=== PATIENT | female | born 1955 | race American Indian/Alaskan Native ===

== ENCOUNTER 2021-02-09 18:44 | Inpatient (IN) | payer MEDICAID ==
[2021-02-09] MEDS ORDERED: Docusate Sodium/Sennosides Tab PO PRN (19:38)
[2021-02-09] MEDS ORDERED: Acetaminophen 325 MG Tab PO PRN (19:38)
[2021-02-09] MEDS ORDERED: oxyCODONE 5 MG Tab PO PRN (19:38)
[2021-02-09 19:40] LABS: CORONAVIRUS COVID-19 NAA POSITIVE (NEGATIVE); INFLUENZA A NAA NEGATIVE (NEGATIVE); INFLUENZA B NAA NEGATIVE (NEGATIVE)
--- NOTE | 2021-02-09 19:54 | PCM.HP.2 ---
H&P History of Present Illness - General Date of Service: 02/09/21 Admit Problem/Dx: Admission Diagnosis/Problem Admission Diagnosis/Problem Hypoxemia - History of Present Illness Initial Comments - Free Text/Narative: Neva Moura is a 66 y/o female with a h/o T2DM and CKD stage III who was transferred to our facility from [place], [place] for concerns of a possible pulmonary embolus. She was diagnosed with COVID 19 infection around jan 22. She stayed home mostly in bed for about a week. She was a finally able to get stronger and get out of the house more last week. She has since then been eating more and doing more activities. Two days ago as she was doing her regular activities of daily living she noticed that she was easily running out of breath. She asked a friend to bring her to the nearest emergency dept in [place], [place]. She was evaluated and found to be hypoxemic in the low 80's on room air. She was given 2L oxygen by MA. Her blood tests revealed a significantly elevated D dimer. The ED provider was unable to perform a CTA chest because her serum cr was elevated and her GFR was in the 30's. She was therefore sent to our facility for further evaluation and management. She continues to have a dry cough but denies having any fevers, chills, diarrhea or loss of appetite. - Related Data Allergies/Adverse Reactions: Allergies Allergy/AdvReac Type Severity Reaction Status Date / Time oxycodone Allergy Chest Verified 02/09/21 19:49 Tightness tramadol Allergy Other Uncoded 02/09/21 19:49 Home Medications: Home Meds Aspirin [Halfprin] 81 mg PO DAILY 02/09/21 [History] Gabapentin [Neurontin] 600 mg PO BEDTIME 02/09/21 [History] Insulin Glarg,Human.Rec.Analog [Lantus] 48 unit SUBCUT BEDTIME 02/09/21 [History] Losartan [Cozaar] 50 mg PO BEDTIME 02/09/21 [History] RX: Gabapentin [Neurontin] 300 mg PO DAILY 02/09/21 [History] H&P Review of Systems - Review of Systems: Review Of Systems: Comprehensive ROS is negative, except as noted in HPI. Exam - Exam Exam: See Below - Vital Signs Vital Signs: Last Vital Signs Temp 97.7 F 02/09/21 18:45 Pulse 107 H 02/09/21 18:45 Resp 22 H 02/09/21 18:45 BP 166/91 H 02/09/21 18:45 Pulse Ox 94 L 02/09/21 18:45 - Exam Physical Exam Comments:: General: Well developed middle aged female. In no acute distress CVS: S1S2 appreciated. RRR lungs: diminished in the bases bilaterally pa: soft, non tender. bowel sounds present ext: no clubbing, cyanosis or edema neuro: moves all extremities. sensation is intact psych: stable mood and affect. - Patient Data Lab Results Last 24 hrs: Laboratory Results - last 24 hr 02/09/21 Range/Units 18:50 Influenza Type A RNA NEGATIVE (NEGATIVE) Influenza Type B RNA NEGATIVE (NEGATIVE) Result Diagrams: 02/10/21 07:15 02/10/21 07:15 Sepsis Event Note - Focused Exam Vital Signs: Vital Signs Temp Pulse Resp BP Pulse Ox 02/09/21 18:45 97.7 F 107 H 22 H 166/91 H 94 L - Problem List (1) Renal failure SNOMED Code(s): 08683878 ICD Code: N19 - UNSPECIFIED KIDNEY FAILURE Status: Acute Current Visit: Yes (2) T2DM (type 2 diabetes mellitus) SNOMED Code(s): 44741872 ICD Code: E11.9 - TYPE 2 DIABETES MELLITUS WITHOUT COMPLICATIONS Status: Acute Current Visit: Yes (3) CAD (coronary artery disease) SNOMED Code(s): 25335351 ICD Code: I25.10 - ATHSCL HEART DISEASE OF [place] CORONARY ARTERY W/O ANG PCTRS Status: Acute Current Visit: Yes (4) CKD stage 3 due to type 2 diabetes mellitus SNOMED Code(s): 940187471749 ICD Code: E11.22 - TYPE 2 DIABETES MELLITUS W DIABETIC CHRONIC KIDNEY DISEASE; N18.30 - CHRONIC KIDNEY DISEASE, STAGE 3 UNSPECIFIED Status: Acute Current Visit: Yes (5) Pulmonary embolism SNOMED Code(s): 89673691 ICD Code: I26.99 - OTHER PULMONARY EMBOLISM WITHOUT ACUTE COR PULMONALE Status: Acute Current Visit: Yes (6) COVID-19 virus infection SNOMED Code(s): 188521646 ICD Code: U07.1 - COVID-19 Status: Acute Current Visit: Yes Problem List Initiated/Reviewed/Updated: Yes Orders Last 24hrs: Active Orders 24 hr Category Date Time Status Patient Status [ADT] Routine ADT 02/09/21 19:38 Active Blood Glucose Check, Bedside [RC] QIDACANDBED Care 02/09/21 19:38 Active Overnight Pulse Oximetry [RC] Click to Edit Care 02/09/21 19:48 Active Oxygen Therapy [RC] PRN Care 02/09/21 19:38 Active Pulse Oximetry [RC] CONTINUOUS Care 02/09/21 19:42 Active RT Aerosol Therapy [RC] ASDIRECTED Care 02/09/21 19:44 Active RT Incentive Spirometry [RC] Q1HWA Care 02/09/21 19:48 Active Up ad Silke [RC] ASDIRECTED Care 02/09/21 19:38 Active VTE/DVT Education [RC] PER UNIT ROUTINE Care 02/09/21 19:38 Active Vital Signs [RC] Q4H Care 02/09/21 19:38 Active Consistent Carbohydrate Diet [DIET] Diet 02/09/21 Lunch Active CTA Chest W WO Contrast [Ang Chest] [CT] Stat Exams 02/09/21 19:49 Ordered BASIC METABOLIC PANEL,BMP [CHEM] AM Lab 02/10/21 05:11 Ordered BASIC METABOLIC PANEL,BMP [CHEM] Stat Lab 02/09/21 19:49 Ordered CBC WITH AUTO DIFF [HEME] AM Lab 02/10/21 05:11 Ordered COVID-19/FLU A+B [MOLEC] Urgent Lab 02/09/21 18:50 Results Acetaminophen [TylenoL] Med 02/09/21 19:38 Ordered 650 mg PO Q4H PRN Albuterol/Ipratropium [DuoNeb 3.0-0.5 MG/3 ML] Med 02/10/21 00:00 Ordered 3 ml NEB Q6HRRT Docusate Sodium/Sennosides [Senokot-S] Med 02/09/21 19:38 Ordered 1 each PO BID PRN Heparin Sodium Med 02/09/21 19:45 Ordered 5,000 units SUBCUT Q12H Sodium Chloride 0.9% [Normal Saline] 500 ml Med 02/09/21 19:45 Ordered IV ASDIRECTED oxyCODONE Med 02/09/21 19:38 Ordered 5 mg PO Q4H PRN Pulse Oximetry Continuous Monitoring [OM.PC] Routine Oth 02/09/21 19:48 Ordered Resuscitation Status Routine Resus Stat 02/09/21 19:38 Ordered Medication Orders Acetaminophen (Acetaminophen 325 Mg Tab) 650 mg PO Q4H PRN PRN Reason: Pain (Mild 1-3)/fever Albuterol/Ipratropium (Albuterol/Ipratropium 3.0-0.5 Mg/3 Ml Neb Soln) 3 ml NEB Q6HRRT BARBER Heparin Sodium (Porcine) (Heparin Sodium 5,000 Units/Ml Vial) 5,000 units SUBCUT Q12H BARBER Sodium Chloride (Normal Saline) 500 mls @ 75 mls/hr IV ASDIRECTED BARBER Oxycodone HCl (Oxycodone 5 Mg Tab) 5 mg PO Q4H PRN PRN Reason: Pain (moderate 4-6) Senna/Docusate Sodium (Docusate Sodium/Sennosides Tab) 1 each PO BID PRN PRN Reason: Constipation Assessment/Plan Comment:: Pulmonary embolism secondary to recent COVID 19 infection Admit to medical floor and start pt on a DOAC continuous pulse oximetry COVID 19 infection Treat with Dexamethasone. Will not give Remdesivir as pt is stable and is several days out from her initial infection. Anticoagulation with Eliquis. Acute hypoxemic respiratory failure due to # 2 above nebs, oxygen supplementation, incentive spirometry T2DM resume insulin as per home regimen CKD stage 3 Gentle hydration following the CT contrast Avoid nephrotoxins CAD Seen on CT scan chest. Pt will need out pt follow up with her PCP regarding a cardiology referral. Full code status Pt may be able to go home in the next 1-2 days. - Mortality Measure Prognosis:: Good
[2021-02-09] MEDS: Sodium Chloride 0.9% 500 ML IV SCH (20:11)
[2021-02-09] MEDS ORDERED: Sodium Chloride 0.9% 500 ML IV SCH (20:30)
[2021-02-09 20:52] LABS: CARBON DIOXIDE,CO2 24.9 mmol/L (21.0-32.0); POTASSIUM,K 3.9 mmol/L (3.5-5.1)
[2021-02-09] MEDS ORDERED: Insulin Glargine,Human Rec. Analog 100 Units/ML 3 ML Pen SUBCUT SCH (21:00)
[2021-02-09] MEDS ORDERED: Glucagon,Human Recombinant 1 MG Vial IM PRN (23:39)
[2021-02-09] MEDS ORDERED: 50% Dextrose in Water 50 ML Syringe IVPUSH PRN (23:39)
[2021-02-10] MEDS ORDERED: Heparin Sodium 5,000 Units/ML Vial SUBCUT SCH
[2021-02-10] MEDS: Albuterol/Ipratropium 3.0-0.5 MG/3 ML Neb Soln NEB SCH ×5 (00:02→23:14)
[2021-02-10] MEDS ORDERED: Enoxaparin 40 MG/0.4 ML Syringe SUBCUT SCH (00:15)
[2021-02-10] MEDS: Aspirin 81 MG Tab.EC PO SCH ×2 (00:29→07:59)
[2021-02-10] MEDS: Gabapentin 300 MG Cap PO SCH ×3 (00:29→20:00)
--- NOTE | 2021-02-10 01:40 | CT ---
INDICATION: Chest pain with shortness of breath and elevated D-dimer TECHNIQUE: CT chest pulmonary PE protocol acquired with 75 cc Isovue 370 IV contrast. COMPARISON: None FINDINGS: Cardiovascular structures: Pulmonary emboli in subsegmental branches of the right lower lobe. No evidence for right heart strain. Coronary artery calcifications. No sign of aneurysm in the thoracic aorta. Mediastinum and diamond: No mass or adenopathy. Lungs: Diffuse ground-glass opacities throughout the lungs. Pleura and pericardium: No effusions. Chest wall and axilla: No mass or adenopathy. Upper abdomen: Unremarkable. Bones: No significant findings. IMPRESSION: Pulmonary emboli in subsegmental branches of the right lower lobe. No evidence for right heart strain. Diffuse ground-glass opacities throughout the lungs concerning for infection, including COVID-19. Coronary artery disease. Findings discussed with Dr. Cota at 1:31am on 02/10/2021. Please note that all CT scans at this facility use dose modulation, iterative reconstruction, and/or weight-based dosing when appropriate to reduce radiation dose to as low as reasonably achievable. Dictated by Aletha Hampton MD @ 02/10/2021 12:29:22 AM (Electronically Signed)
[2021-02-10] MEDS: Apixaban 5 MG Tab PO SCH ×3 (02:06→20:00)
[2021-02-10] MEDS: Sodium Chloride 0.9% 500 ML IV SCH (04:50)
[2021-02-10] MEDS ORDERED: 50% Dextrose in Water 50 ML Syringe IVPUSH PRN ×2 (07:48→12:25)
[2021-02-10] MEDS ORDERED: Glucagon,Human Recombinant 1 MG Vial IM PRN ×2 (07:48→12:25)
[2021-02-10] MEDS: Insulin Aspart 100 Units/ML 3 ML Pen SUBCUT SCH ×2 (07:59→12:25)
[2021-02-10 08:38] LABS: CARBON DIOXIDE,CO2 15.7 mmol/L (21.0-32.0); POTASSIUM,K 4.6 mmol/L (3.5-5.1)
--- NOTE | 2021-02-10 10:45 | PCM.PN ---
- General Info Date of Service: 02/10/21 Admission Dx/Problem (Free Text): Pt feels relatively OK today. She is able to do about 1300cc on the incentive spirometer - Patient Data Vitals - Most Recent: Last Vital Signs Temp 97.5 F 02/10/21 07:47 Pulse 115 H 02/10/21 07:47 Resp 20 02/10/21 07:47 BP 156/79 H 02/10/21 07:47 Pulse Ox 93 L 02/10/21 07:47 Weight - Most Recent: 169 lb 12.8 oz I&O - Last 24 Hours: Intake & Output 02/09/21 02/10/21 02/10/21 22:59 06:59 14:59 Intake Total 1600 Output Total 1200 Balance 400 Lab Results Last 24 Hours: Laboratory Results - last 24 hr 02/09/21 02/09/21 02/09/21 Range/Units 18:50 20:09 20:20 WBC (4.0-11.0) K/uL RBC (4.30-5.90) M/uL Hgb (12.0-16.0) g/dL Hct (36.0-46.0) % MCV (80.0-98.0) fL MCH (27.0-32.0) pg MCHC (31.0-37.0) g/dL RDW Std Deviation (28.0-62.0) fl RDW Coeff of Lv (11.0-15.0) % Plt Count (150-400) K/uL MPV (7.40-12.00) fL Neut % (Auto) (48.0-80.0) % Lymph % (Auto) (16.0-40.0) % [place] % (Auto) (0.0-15.0) % Eos % (Auto) (0.0-7.0) % Baso % (Auto) (0.0-1.5) % Neut # (Auto) (1.4-5.7) K/uL Lymph # (Auto) (0.6-2.4) K/uL [place] # (Auto) (0.0-0.8) K/uL Eos # (Auto) (0.0-0.7) K/uL Baso # (Auto) (0.0-0.1) K/uL Nucleated RBC % /100WBC Nucleated RBCs # K/uL Sodium 137 (136-145) mmol/L Potassium 3.9 (3.5-5.1) mmol/L Chloride 103 (98-107) mmol/L Carbon Dioxide 24.9 (21.0-32.0) mmol/L BUN 16 (7.0-18.0) mg/dL Creatinine 1.5 H (0.6-1.0) mg/dL Est Cr Clr Drug Dosing 36.85 mL/min Estimated GFR (MDRD) 35.0 ml/min Glucose 317 H (74-106) mg/dL POC Glucose 274 H (70-99) mg/dL Calcium 7.5 L (8.5-10.1) mg/dL Influenza Type A RNA NEGATIVE (NEGATIVE) Influenza Type B RNA NEGATIVE (NEGATIVE) SARS-CoV-2 RNA (ROGER) POSITIVE H (NEGATIVE) 02/09/21 02/10/21 02/10/21 Range/Units 20:20 06:40 07:15 WBC 10.20 9.65 (4.0-11.0) K/uL RBC 3.29 L 3.54 L (4.30-5.90) M/uL Hgb 10.3 L 10.9 L (12.0-16.0) g/dL Hct 28.9 L 31.7 L (36.0-46.0) % MCV 87.8 89.5 (80.0-98.0) fL MCH 31.3 30.8 (27.0-32.0) pg MCHC 35.6 34.4 (31.0-37.0) g/dL RDW Std Deviation 40.5 42.1 (28.0-62.0) fl RDW Coeff of Lv 13 13 (11.0-15.0) % Plt Count 356 374 (150-400) K/uL MPV 9.50 10.90 (7.40-12.00) fL Neut % (Auto) 94.8 H 89.8 H (48.0-80.0) % Lymph % (Auto) 3.9 L 9.4 L (16.0-40.0) % [place] % (Auto) 0.9 0.7 (0.0-15.0) % Eos % (Auto) 0.1 0.0 (0.0-7.0) % Baso % (Auto) 0.3 0.1 (0.0-1.5) % Neut # (Auto) 9.7 H 8.7 H (1.4-5.7) K/uL Lymph # (Auto) 0.4 L 0.9 (0.6-2.4) K/uL [place] # (Auto) 0.1 0.1 (0.0-0.8) K/uL Eos # (Auto) 0.0 0.0 (0.0-0.7) K/uL Baso # (Auto) 0.0 0.0 (0.0-0.1) K/uL Nucleated RBC % 0.0 0.0 /100WBC Nucleated RBCs # 0 0 K/uL Sodium (136-145) mmol/L Potassium (3.5-5.1) mmol/L Chloride (98-107) mmol/L Carbon Dioxide (21.0-32.0) mmol/L BUN (7.0-18.0) mg/dL Creatinine (0.6-1.0) mg/dL Est Cr Clr Drug Dosing mL/min Estimated GFR (MDRD) ml/min Glucose (74-106) mg/dL POC Glucose 428 H* (70-99) mg/dL Calcium (8.5-10.1) mg/dL Influenza Type A RNA (NEGATIVE) Influenza Type B RNA (NEGATIVE) SARS-CoV-2 RNA (ROGER) (NEGATIVE) 02/10/21 Range/Units 07:15 WBC (4.0-11.0) K/uL RBC (4.30-5.90) M/uL Hgb (12.0-16.0) g/dL Hct (36.0-46.0) % MCV (80.0-98.0) fL MCH (27.0-32.0) pg MCHC (31.0-37.0) g/dL RDW Std Deviation (28.0-62.0) fl RDW Coeff of Lv (11.0-15.0) % Plt Count (150-400) K/uL MPV (7.40-12.00) fL Neut % (Auto) (48.0-80.0) % Lymph % (Auto) (16.0-40.0) % [place] % (Auto) (0.0-15.0) % Eos % (Auto) (0.0-7.0) % Baso % (Auto) (0.0-1.5) % Neut # (Auto) (1.4-5.7) K/uL Lymph # (Auto) (0.6-2.4) K/uL [place] # (Auto) (0.0-0.8) K/uL Eos # (Auto) (0.0-0.7) K/uL Baso # (Auto) (0.0-0.1) K/uL Nucleated RBC % /100WBC Nucleated RBCs # K/uL Sodium 136 (136-145) mmol/L Potassium 4.6 (3.5-5.1) mmol/L Chloride 102 (98-107) mmol/L Carbon Dioxide 15.7 L (21.0-32.0) mmol/L BUN 20 H (7.0-18.0) mg/dL Creatinine 1.6 H (0.6-1.0) mg/dL Est Cr Clr Drug Dosing 34.54 mL/min Estimated GFR (MDRD) 32.5 ml/min Glucose 467 H (74-106) mg/dL POC Glucose (70-99) mg/dL Calcium 7.8 L (8.5-10.1) mg/dL Influenza Type A RNA (NEGATIVE) Influenza Type B RNA (NEGATIVE) SARS-CoV-2 RNA (ROGER) (NEGATIVE) Med Orders - Current: Current Medications Acetaminophen (Acetaminophen 325 Mg Tab) 650 mg PO Q4H PRN PRN Reason: Pain (Mild 1-3)/fever Last Admin: 02/10/21 01:26 Dose: 650 mg Documented by: Albuterol/Ipratropium (Albuterol/Ipratropium 3.0-0.5 Mg/3 Ml Neb Soln) 3 ml NEB Q6HRRT [facility] Last Admin: 02/10/21 06:18 Dose: 3 ml Documented by: Apixaban (Apixaban 5 Mg Tab) 5 mg PO Q12HR [facility] Last Admin: 02/10/21 07:59 Dose: 5 mg Documented by: Aspirin (Aspirin 81 Mg Tab.Ec) 81 mg PO DAILY [facility] Last Admin: 02/10/21 07:59 Dose: 81 mg Documented by: Dextrose/Water (50% Dextrose In Water 50 Ml Syringe) 50 ml IVPUSH ASDIRECTED PRN PRN Reason: Hypoglycemia Gabapentin (Gabapentin 300 Mg Cap) 300 mg PO DAILY [facility] Last Admin: 02/10/21 07:59 Dose: 300 mg Documented by: Gabapentin (Gabapentin 300 Mg Cap) 600 mg PO BEDTIME BARBER Glucagon (Glucagon,Human Recombinant 1 Mg Vial) 1 mg IM ASDIRECTED PRN PRN Reason: Hypoglycemia Heparin Sodium (Porcine) (Heparin Sodium 5,000 Units/Ml Vial) 5,000 units SUBCUT Q12H [facility] Last Admin: 02/10/21 00:03 Dose: 5,000 units Documented by: Sodium Chloride (Normal Saline) 500 mls @ 75 mls/hr IV ASDIRECTED [facility] Last Admin: 02/10/21 04:50 Dose: 75 mls/hr Documented by: Insulin Aspart (Insulin Aspart 100 Units/Ml 3 Ml Pen) 0 unit SUBCUT TIDAC [facility], [facility]; Protocol Last Admin: 02/10/21 07:59 Dose: 15 unit Documented by: Insulin Glargine (Insulin Glargine,Human Rec. Analog 100 Units/Ml 3 Ml Pen) 48 units SUBCUT BEDTIME [facility] Last Admin: 02/10/21 00:03 Dose: 48 units Documented by: Losartan Potassium (Losartan 50 Mg Tab) 50 mg PO BEDTIME BARBER Oxycodone HCl (Oxycodone 5 Mg Tab) 5 mg PO Q4H PRN PRN Reason: Pain (moderate 4-6) Senna/Docusate Sodium (Docusate Sodium/Sennosides Tab) 1 each PO BID PRN PRN Reason: Constipation Discontinued Medications Dextrose/Water (50% Dextrose In Water 50 Ml Syringe) 50 ml IVPUSH ASDIRECTED PRN PRN Reason: Hypoglycemia Enoxaparin Sodium (Enoxaparin 40 Mg/0.4 Ml Syringe) 40 mg SUBCUT DAILY [facility] Last Admin: 02/10/21 01:46 Dose: Not Given Documented by: Glucagon (Glucagon,Human Recombinant 1 Mg Vial) 1 mg IM ASDIRECTED PRN PRN Reason: Hypoglycemia Sodium Chloride (Normal Saline) 500 mls @ 999 mls/hr IV .BOLUS [facility] Last Admin: 02/09/21 20:32 Dose: 999 mls/hr Documented by: Insulin Glargine (Insulin Glargine,Human Rec. Analog 100 Units/Ml 3 Ml Pen) 48 units SUBCUT BEDTIME BARBER - Exam Physical Findings Comments:: General: Well developed middle aged female. In no acute distress CVS: S1S2 appreciated. RRR lungs: diminished in the bases bilaterally pa: soft, non tender. bowel sounds present ext: no clubbing, cyanosis or edema neuro: moves all extremities. sensation is intact psych: stable mood and affect. - Patient Data Lab Results Last 24 hrs: Laboratory Results - last 24 hr 02/09/21 02/09/21 02/09/21 Range/Units 18:50 20:09 20:20 WBC (4.0-11.0) K/uL RBC (4.30-5.90) M/uL Hgb (12.0-16.0) g/dL Hct (36.0-46.0) % MCV (80.0-98.0) fL MCH (27.0-32.0) pg MCHC (31.0-37.0) g/dL RDW Std Deviation (28.0-62.0) fl RDW Coeff of Lv (11.0-15.0) % Plt Count (150-400) K/uL MPV (7.40-12.00) fL Neut % (Auto) (48.0-80.0) % Lymph % (Auto) (16.0-40.0) % [place] % (Auto) (0.0-15.0) % Eos % (Auto) (0.0-7.0) % Baso % (Auto) (0.0-1.5) % Neut # (Auto) (1.4-5.7) K/uL Lymph # (Auto) (0.6-2.4) K/uL [place] # (Auto) (0.0-0.8) K/uL Eos # (Auto) (0.0-0.7) K/uL Baso # (Auto) (0.0-0.1) K/uL Nucleated RBC % /100WBC Nucleated RBCs # K/uL Sodium 137 (136-145) mmol/L Potassium 3.9 (3.5-5.1) mmol/L Chloride 103 (98-107) mmol/L Carbon Dioxide 24.9 (21.0-32.0) mmol/L BUN 16 (7.0-18.0) mg/dL Creatinine 1.5 H (0.6-1.0) mg/dL Est Cr Clr Drug Dosing 36.85 mL/min Estimated GFR (MDRD) 35.0 ml/min Glucose 317 H (74-106) mg/dL POC Glucose 274 H (70-99) mg/dL Calcium 7.5 L (8.5-10.1) mg/dL Influenza Type A RNA NEGATIVE (NEGATIVE) Influenza Type B RNA NEGATIVE (NEGATIVE) SARS-CoV-2 RNA (ROGER) POSITIVE H (NEGATIVE) 02/09/21 02/10/21 02/10/21 Range/Units 20:20 06:40 07:15 WBC 10.20 9.65 (4.0-11.0) K/uL RBC 3.29 L 3.54 L (4.30-5.90) M/uL Hgb 10.3 L 10.9 L (12.0-16.0) g/dL Hct 28.9 L 31.7 L (36.0-46.0) % MCV 87.8 89.5 (80.0-98.0) fL MCH 31.3 30.8 (27.0-32.0) pg MCHC 35.6 34.4 (31.0-37.0) g/dL RDW Std Deviation 40.5 42.1 (28.0-62.0) fl RDW Coeff of Lv 13 13 (11.0-15.0) % Plt Count 356 374 (150-400) K/uL MPV 9.50 10.90 (7.40-12.00) fL Neut % (Auto) 94.8 H 89.8 H (48.0-80.0) % Lymph % (Auto) 3.9 L 9.4 L (16.0-40.0) % [place] % (Auto) 0.9 0.7 (0.0-15.0) % Eos % (Auto) 0.1 0.0 (0.0-7.0) % Baso % (Auto) 0.3 0.1 (0.0-1.5) % Neut # (Auto) 9.7 H 8.7 H (1.4-5.7) K/uL Lymph # (Auto) 0.4 L 0.9 (0.6-2.4) K/uL [place] # (Auto) 0.1 0.1 (0.0-0.8) K/uL Eos # (Auto) 0.0 0.0 (0.0-0.7) K/uL Baso # (Auto) 0.0 0.0 (0.0-0.1) K/uL Nucleated RBC % 0.0 0.0 /100WBC Nucleated RBCs # 0 0 K/uL Sodium (136-145) mmol/L Potassium (3.5-5.1) mmol/L Chloride (98-107) mmol/L Carbon Dioxide (21.0-32.0) mmol/L BUN (7.0-18.0) mg/dL Creatinine (0.6-1.0) mg/dL Est Cr Clr Drug Dosing mL/min Estimated GFR (MDRD) ml/min Glucose (74-106) mg/dL POC Glucose 428 H* (70-99) mg/dL Calcium (8.5-10.1) mg/dL Influenza Type A RNA (NEGATIVE) Influenza Type B RNA (NEGATIVE) SARS-CoV-2 RNA (ROGER) (NEGATIVE) 02/10/21 Range/Units 07:15 WBC (4.0-11.0) K/uL RBC (4.30-5.90) M/uL Hgb (12.0-16.0) g/dL Hct (36.0-46.0) % MCV (80.0-98.0) fL MCH (27.0-32.0) pg MCHC (31.0-37.0) g/dL RDW Std Deviation (28.0-62.0) fl RDW Coeff of Lv (11.0-15.0) % Plt Count (150-400) K/uL MPV (7.40-12.00) fL Neut % (Auto) (48.0-80.0) % Lymph % (Auto) (16.0-40.0) % [place] % (Auto) (0.0-15.0) % Eos % (Auto) (0.0-7.0) % Baso % (Auto) (0.0-1.5) % Neut # (Auto) (1.4-5.7) K/uL Lymph # (Auto) (0.6-2.4) K/uL [place] # (Auto) (0.0-0.8) K/uL Eos # (Auto) (0.0-0.7) K/uL Baso # (Auto) (0.0-0.1) K/uL Nucleated RBC % /100WBC Nucleated RBCs # K/uL Sodium 136 (136-145) mmol/L Potassium 4.6 (3.5-5.1) mmol/L Chloride 102 (98-107) mmol/L Carbon Dioxide 15.7 L (21.0-32.0) mmol/L BUN 20 H (7.0-18.0) mg/dL Creatinine 1.6 H (0.6-1.0) mg/dL Est Cr Clr Drug Dosing 34.54 mL/min Estimated GFR (MDRD) 32.5 ml/min Glucose 467 H (74-106) mg/dL POC Glucose (70-99) mg/dL Calcium 7.8 L (8.5-10.1) mg/dL Influenza Type A RNA (NEGATIVE) Influenza Type B RNA (NEGATIVE) SARS-CoV-2 RNA (ROGER) (NEGATIVE) Result Diagrams: 02/10/21 07:15 02/10/21 07:15 Sepsis Event Note - Evaluation Sepsis Screening Result: No Definite Risk - Focused Exam Vital Signs: Vital Signs Temp Pulse Resp BP Pulse Ox 02/10/21 07:47 97.5 F 115 H 20 156/79 H 93 L 02/10/21 05:15 18 91 L 02/10/21 04:03 96.9 F 102 H 16 170/90 H 92 L 02/10/21 01:28 165/57 H 02/10/21 00:31 184/84 H 02/09/21 23:37 96.9 F 100 20 196/89 H 99 - Problem List & Annotations (1) Renal failure SNOMED Code(s): 71628461 Code(s): N19 - UNSPECIFIED KIDNEY FAILURE Status: Acute Current Visit: Yes (2) T2DM (type 2 diabetes mellitus) SNOMED Code(s): 62881044 Code(s): E11.9 - TYPE 2 DIABETES MELLITUS WITHOUT COMPLICATIONS Status: Acute Current Visit: Yes (3) CAD (coronary artery disease) SNOMED Code(s): 46186758 Code(s): I25.10 - ATHSCL HEART DISEASE OF [place] CORONARY ARTERY W/O ANG PCTRS Status: Acute Current Visit: Yes (4) CKD stage 3 due to type 2 diabetes mellitus SNOMED Code(s): 105881916563 Code(s): E11.22 - TYPE 2 DIABETES MELLITUS W DIABETIC CHRONIC KIDNEY DISEASE; N18.30 - CHRONIC KIDNEY DISEASE, STAGE 3 UNSPECIFIED Status: Acute Current Visit: Yes (5) Pulmonary embolism SNOMED Code(s): 05600601 Code(s): I26.99 - OTHER PULMONARY EMBOLISM WITHOUT ACUTE COR PULMONALE Status: Acute Current Visit: Yes (6) COVID-19 virus infection SNOMED Code(s): 319895948 Code(s): U07.1 - COVID-19 Status: Acute Current Visit: Yes - Problem List Review Problem List Initiated/Reviewed/Updated: Yes - My Orders Last 24 Hours: My Active Orders 02/09/21 Lunch Consistent Carbohydrate Diet [DIET] 02/09/21 19:38 Patient Status [ADT] Routine Blood Glucose Check, Bedside [RC] QIDACANDBED Oxygen Therapy [RC] PRN Up ad Silke [RC] ASDIRECTED VTE/DVT Education [RC] PER UNIT ROUTINE Vital Signs [RC] Q4H Acetaminophen [TylenoL] 650 mg PO Q4H PRN Docusate Sodium/Sennosides [Senokot-S] 1 each PO BID PRN oxyCODONE 5 mg PO Q4H PRN Resuscitation Status Routine 02/09/21 19:42 Pulse Oximetry [RC] CONTINUOUS 02/09/21 19:44 RT Aerosol Therapy [RC] ASDIRECTED 02/09/21 19:45 Sodium Chloride 0.9% [Normal Saline] 500 ml IV ASDIRECTED 02/09/21 19:48 Overnight Pulse Oximetry [RC] Click to Edit RT Incentive Spirometry [RC] Q1HWA Pulse Oximetry Continuous Monitoring [OM.PC] Routine 02/09/21 21:00 Insulin Glarg,Human.Rec.Analog [LantUS Solostar] 48 units SUBCUT BEDTIME 02/10/21 00:00 Albuterol/Ipratropium [DuoNeb 3.0-0.5 MG/3 ML] 3 ml NEB Q6HRRT Heparin Sodium 5,000 units SUBCUT Q12H 02/10/21 00:15 Aspirin [Halfprin] 81 mg PO DAILY Gabapentin [Neurontin] 300 mg PO DAILY 02/10/21 01:35 Apixaban [Eliquis] 5 mg PO Q12HR 02/10/21 07:48 Dextrose 50% in Water 50 ml IVPUSH ASDIRECTED PRN Glucagon,Human Recombinant [GlucaGen] 1 mg IM ASDIRECTED PRN Insulin Aspart [NovoLOG] See Protocol SUBCUT TIDAC 02/10/21 21:00 Gabapentin [Neurontin] 600 mg PO BEDTIME Losartan [Cozaar] 50 mg PO BEDTIME - Plan Plan:: Pulmonary embolism secondary to recent COVID 19 infection Pt was started on Eliquis continuous pulse oximetry COVID 19 infection Treat with Dexamethasone and anticoagulation. Will hold off on Remdesivir. Acute hypoxemic respiratory failure due to # 2 above nebs, oxygen supplementation, incentive spirometry T2DM On insulin as per home regimen CKD stage 3 Gentle hydration following the CT contrast Avoid nephrotoxins Follow bun/ cr in am. CAD- stable. Pt has no angina symptoms. Seen on CT scan chest. Pt will need out pt follow up with her PCP regarding a cardiology referral. Full code status Pt may be able to go home tomorrow.
[2021-02-10] MEDS ORDERED: Benzonatate 100 MG Cap PO PRN (11:30)
[2021-02-10] MEDS: Dexamethasone 4 MG Tab PO SCH (12:10)
[2021-02-10] MEDS ORDERED: Insulin Regular in 0.9 % NACL 100 ML IV SCH ×2 (14:30→14:57)
[2021-02-10 15:39] LABS: POTASSIUM,K 4.2 mmol/L (3.5-5.1)
[2021-02-10] MEDS ORDERED: Sodium Chloride 0.9% 1,000 ML IV SCH (16:00)
[2021-02-10] MEDS ORDERED: Sodium Chloride 0.9% 500 ML IV SCH (16:15)
[2021-02-10] MEDS ORDERED: Insulin Aspart 100 Units/ML 3 ML Pen SUBCUT SCH (17:00)
[2021-02-10 19:37] LABS: CARBON DIOXIDE,CO2 23.4 mmol/L (21.0-32.0); POTASSIUM,K 4.5 mmol/L (3.5-5.1)
[2021-02-10] MEDS: Losartan 50 MG Tab PO SCH (20:00)
[2021-02-10] MEDS ORDERED: Insulin Glargine,Human Rec. Analog 100 Units/ML 3 ML Pen SUBCUT SCH (21:00)
[2021-02-10 23:32] LABS: CARBON DIOXIDE,CO2 25.1 mmol/L (21.0-32.0); POTASSIUM,K 4.3 mmol/L (3.5-5.1)
[2021-02-11 03:24] LABS: CARBON DIOXIDE,CO2 25.1 mmol/L (21.0-32.0); POTASSIUM,K 4.4 mmol/L (3.5-5.1)
[2021-02-11] MEDS: Albuterol/Ipratropium 3.0-0.5 MG/3 ML Neb Soln NEB SCH ×3 (05:31→17:23)
[2021-02-11 07:35] LABS: CARBON DIOXIDE,CO2 22.6 mmol/L (21.0-32.0); POTASSIUM,K 4.2 mmol/L (3.5-5.1)
[2021-02-11] MEDS: Gabapentin 300 MG Cap PO SCH ×3 (08:26→20:13)
[2021-02-11] MEDS: Apixaban 5 MG Tab PO SCH ×2 (08:26→20:00)
[2021-02-11] MEDS: Dexamethasone 4 MG Tab PO SCH (08:26)
[2021-02-11] MEDS: Aspirin 81 MG Tab.EC PO SCH (08:26)
[2021-02-11] MEDS ORDERED: Insulin Regular in 0.9 % NACL 100 ML IV SCH (10:45)
[2021-02-11 12:18] LABS: CARBON DIOXIDE,CO2 22.3 mmol/L (21.0-32.0); POTASSIUM,K 4.1 mmol/L (3.5-5.1)
[2021-02-11] MEDS ORDERED: Glucagon,Human Recombinant 1 MG Vial IM PRN (14:40)
[2021-02-11] MEDS ORDERED: 50% Dextrose in Water 50 ML Syringe IVPUSH PRN (14:40)
[2021-02-11] MEDS: Insulin Glargine,Human Rec. Analog 100 Units/ML 3 ML Pen SUBCUT SCH (14:45)
[2021-02-11 15:41] LABS: CARBON DIOXIDE,CO2 22.2 mmol/L (21.0-32.0); POTASSIUM,K 5.2 mmol/L (3.5-5.1)
--- NOTE | 2021-02-11 18:10 | PCM.PN ---
- General Info Date of Service: 02/11/21 - Review of Systems Systems Review Comment:: feeling better, shortness of breath has improved - Patient Data Vitals - Most Recent: Last Vital Signs Temp 36.6 C 02/11/21 17:00 Pulse 117 H 02/10/21 12:00 Resp 30 H 02/11/21 17:00 BP 170/94 H 02/11/21 17:00 Pulse Ox 90 L 02/11/21 17:00 Weight - Most Recent: 77.02 kg I&O - Last 24 Hours: Intake & Output 02/11/21 02/11/21 02/11/21 06:59 14:59 22:59 Intake Total 1000 Output Total 250 650 Balance -250 350 Lab Results Last 24 Hours: Laboratory Results - last 24 hr 02/10/21 02/10/21 02/10/21 Range/Units 18:05 19:09 19:10 Sodium 134 L (136-145) mmol/L Potassium 4.5 (3.5-5.1) mmol/L Chloride 103 (98-107) mmol/L Carbon Dioxide 23.4 (21.0-32.0) mmol/L BUN 36 H (7.0-18.0) mg/dL Creatinine 2.1 H (0.6-1.0) mg/dL Est Cr Clr Drug Dosing 26.32 mL/min Estimated GFR (MDRD) 23.7 ml/min Glucose 497 H (74-106) mg/dL POC Glucose 453 H* 435 H* (70-99) mg/dL Calcium 7.7 L (8.5-10.1) mg/dL 02/10/21 02/10/21 02/10/21 Range/Units 20:09 20:43 22:14 Sodium (136-145) mmol/L Potassium (3.5-5.1) mmol/L Chloride (98-107) mmol/L Carbon Dioxide (21.0-32.0) mmol/L BUN (7.0-18.0) mg/dL Creatinine (0.6-1.0) mg/dL Est Cr Clr Drug Dosing mL/min Estimated GFR (MDRD) ml/min Glucose (74-106) mg/dL POC Glucose 382 H 375 H 323 H (70-99) mg/dL Calcium (8.5-10.1) mg/dL 02/10/21 02/10/21 02/11/21 Range/Units 23:05 23:05 00:59 Sodium 134 L (136-145) mmol/L Potassium 4.3 (3.5-5.1) mmol/L Chloride 103 (98-107) mmol/L Carbon Dioxide 25.1 (21.0-32.0) mmol/L BUN 35 H (7.0-18.0) mg/dL Creatinine 2.0 H (0.6-1.0) mg/dL Est Cr Clr Drug Dosing 27.63 mL/min Estimated GFR (MDRD) 25.1 ml/min Glucose 367 H (74-106) mg/dL POC Glucose 321 H 263 H (70-99) mg/dL Calcium 8.4 L (8.5-10.1) mg/dL 02/11/21 02/11/21 02/11/21 Range/Units 03:06 03:06 06:19 Sodium 137 (136-145) mmol/L Potassium 4.4 (3.5-5.1) mmol/L Chloride 107 (98-107) mmol/L Carbon Dioxide 25.1 (21.0-32.0) mmol/L BUN 34 H (7.0-18.0) mg/dL Creatinine 1.9 H (0.6-1.0) mg/dL Est Cr Clr Drug Dosing 29.09 mL/min Estimated GFR (MDRD) 26.6 ml/min Glucose 264 H (74-106) mg/dL POC Glucose 254 H 168 H (70-99) mg/dL Calcium 8.0 L (8.5-10.1) mg/dL 02/11/21 02/11/21 02/11/21 Range/Units 07:04 08:16 10:22 Sodium 138 (136-145) mmol/L Potassium 4.2 (3.5-5.1) mmol/L Chloride 106 (98-107) mmol/L Carbon Dioxide 22.6 (21.0-32.0) mmol/L BUN 33 H (7.0-18.0) mg/dL Creatinine 1.8 H (0.6-1.0) mg/dL Est Cr Clr Drug Dosing 30.70 mL/min Estimated GFR (MDRD) 28.3 ml/min Glucose 181 H (74-106) mg/dL POC Glucose 157 H 175 H (70-99) mg/dL Calcium 8.1 L (8.5-10.1) mg/dL 02/11/21 02/11/21 02/11/21 Range/Units 11:15 12:40 14:32 Sodium 137 (136-145) mmol/L Potassium 4.1 (3.5-5.1) mmol/L Chloride 106 (98-107) mmol/L Carbon Dioxide 22.3 (21.0-32.0) mmol/L BUN 32 H (7.0-18.0) mg/dL Creatinine 1.8 H (0.6-1.0) mg/dL Est Cr Clr Drug Dosing 30.70 mL/min Estimated GFR (MDRD) 28.3 ml/min Glucose 262 H (74-106) mg/dL POC Glucose 351 H 445 H* (70-99) mg/dL Calcium 8.0 L (8.5-10.1) mg/dL 02/11/21 02/11/21 Range/Units 14:58 16:11 Sodium 133 L (136-145) mmol/L Potassium 5.2 H (3.5-5.1) mmol/L Chloride 103 (98-107) mmol/L Carbon Dioxide 22.2 (21.0-32.0) mmol/L BUN 34 H (7.0-18.0) mg/dL Creatinine 1.9 H (0.6-1.0) mg/dL Est Cr Clr Drug Dosing 29.09 mL/min Estimated GFR (MDRD) 26.6 ml/min Glucose 491 H (74-106) mg/dL POC Glucose 474 H* (70-99) mg/dL Calcium 7.9 L (8.5-10.1) mg/dL Med Orders - Current: Current Medications Acetaminophen (Acetaminophen 325 Mg Tab) 650 mg PO Q4H PRN PRN Reason: Pain (Mild 1-3)/fever Last Admin: 02/10/21 01:26 Dose: 650 mg Documented by: Albuterol/Ipratropium (Albuterol/Ipratropium 3.0-0.5 Mg/3 Ml Neb Soln) 3 ml NEB Q6HRRT [facility] Last Admin: 02/11/21 17:23 Dose: 3 ml Documented by: Apixaban (Apixaban 5 Mg Tab) [address] [facility] Last Admin: 02/11/21 08:26 Dose: 5 mg Documented by: Aspirin (Aspirin 81 Mg Tab.Ec) [address] [facility] Last Admin: 02/11/21 08:26 Dose: 81 mg Documented by: Benzonatate (Benzonatate 100 Mg Cap) 100 mg PO Q8H PRN PRN Reason: Cough Dexamethasone (Dexamethasone 4 Mg Tab) [address] [facility] Stop: 02/20/21 11:31 Last Admin: 02/11/21 08:26 Dose: 6 mg Documented by: Dextrose/Water (50% Dextrose In Water 50 Ml Syringe) 50 ml IVPUSH ASDIRECTED PRN PRN Reason: Hypoglycemia Gabapentin (Gabapentin 300 Mg Cap) [address] [facility] Last Admin: 02/11/21 08:26 Dose: 300 mg Documented by: Gabapentin (Gabapentin 300 Mg Cap) [address] [facility] Last Admin: 02/10/21 20:00 Dose: 600 mg Documented by: Glucagon (Glucagon,Human Recombinant 1 Mg Vial) 1 mg IM ASDIRECTED PRN PRN Reason: Hypoglycemia Sodium Chloride (Normal Saline) 500 mls @ 75 mls/hr IV ASDIRECTED [facility] Last Admin: 02/10/21 04:50 Dose: 75 mls/hr Documented by: Sodium Chloride (Normal Saline) 500 mls @ 50 mls/hr IV ASDIRECTED [facility] Last Admin: 02/10/21 16:24 Dose: 50 mls/hr Documented by: Insulin Regular in 0.9 % NACL (Myxredlin In Ns 100 Unit/100 Ml) 100 mls @ 1 mls/hr IV TITRATE [facility]; Protocol Last Titration: 02/11/21 12:43 Dose: 4 mls/hr, 4 mls/hr Documented by: Insulin Glargine (Insulin Glargine,Human Rec. Analog 100 Units/Ml 3 Ml Pen) [address] [facility] Last Admin: 02/11/21 14:45 Dose: 48 units Documented by: Losartan Potassium (Losartan 50 Mg Tab) [address] [facility] Last Admin: 02/10/21 20:00 Dose: 50 mg Documented by: Senna/Docusate Sodium (Docusate Sodium/Sennosides Tab) 1 each PO BID PRN PRN Reason: Constipation Discontinued Medications Dextrose/Water (50% Dextrose In Water 50 Ml Syringe) 50 ml IVPUSH ASDIRECTED PRN PRN Reason: Hypoglycemia Dextrose/Water (50% Dextrose In Water 50 Ml Syringe) 50 ml IVPUSH ASDIRECTED PRN PRN Reason: Hypoglycemia Enoxaparin Sodium (Enoxaparin 40 Mg/0.4 Ml Syringe) 40 mg SUBCUT DAILY [facility] Last Admin: 02/10/21 01:46 Dose: Not Given Documented by: Glucagon (Glucagon,Human Recombinant 1 Mg Vial) 1 mg IM ASDIRECTED PRN PRN Reason: Hypoglycemia Glucagon (Glucagon,Human Recombinant 1 Mg Vial) 1 mg IM ASDIRECTED PRN PRN Reason: Hypoglycemia Heparin Sodium (Porcine) (Heparin Sodium 5,000 Units/Ml Vial) 5,000 units SUBCUT Q12H [facility] Last Admin: 02/10/21 00:03 Dose: 5,000 units Documented by: Sodium Chloride (Normal Saline) 500 mls @ 999 mls/hr IV .BOLUS [facility] Last Admin: 02/09/21 20:32 Dose: 999 mls/hr Documented by: Insulin Regular in 0.9 % NACL (Myxredlin In Ns 100 Unit/100 Ml) 100 mls @ 7.702 mls/hr IV TITRATE [facility]; Protocol Insulin Regular in 0.9 % NACL (Myxredlin In Ns 100 Unit/100 Ml) 100 mls @ 1 mls/hr IV TITRATE [facility]; Protocol Last Titration: 02/11/21 06:24 Dose: 1.5 mls/hr, 1.5 mls/hr Documented by: Sodium Chloride (Normal Saline) 1,000 mls @ 50 mls/hr IV ASDIRECTED [facility] Insulin Aspart (Insulin Aspart 100 Units/Ml 3 Ml Pen) 0 unit SUBCUT TIDAC [facility]; Protocol Last Admin: 02/10/21 12:25 Dose: 20 unit Documented by: Insulin Aspart (Insulin Aspart 100 Units/Ml 3 Ml Pen) 15 unit SUBCUT TIDAC [facility] Insulin Glargine (Insulin Glargine,Human Rec. Analog 100 Units/Ml 3 Ml Pen) 48 units SUBCUT BEDTIME [facility] Last Admin: 02/10/21 00:03 Dose: 48 units Documented by: Insulin Glargine (Insulin Glargine,Human Rec. Analog 100 Units/Ml 3 Ml Pen) 48 units SUBCUT BEDTIME [facility] Oxycodone HCl (Oxycodone 5 Mg Tab) 5 mg PO Q4H PRN PRN Reason: Pain (moderate 4-6) - Exam General: Alert, Oriented Neck: Supple Lungs: Clear to Auscultation, Normal Respiratory Effort Cardiovascular: Regular Rate, Regular Rhythm GI/Abdominal Exam: Normal Bowel Sounds, Soft, Non-Tender Extremities: Non-Tender, No Pedal Edema Skin: Warm, Dry, Intact Neurological: No New Focal Deficit - Patient Data Lab Results Last 24 hrs: Laboratory Results - last 24 hr 02/10/21 02/10/21 02/10/21 Range/Units 18:05 19:09 19:10 Sodium 134 L (136-145) mmol/L Potassium 4.5 (3.5-5.1) mmol/L Chloride 103 (98-107) mmol/L Carbon Dioxide 23.4 (21.0-32.0) mmol/L BUN 36 H (7.0-18.0) mg/dL Creatinine 2.1 H (0.6-1.0) mg/dL Est Cr Clr Drug Dosing 26.32 mL/min Estimated GFR (MDRD) 23.7 ml/min Glucose 497 H (74-106) mg/dL POC Glucose 453 H* 435 H* (70-99) mg/dL Calcium 7.7 L (8.5-10.1) mg/dL 02/10/21 02/10/21 02/10/21 Range/Units 20:09 20:43 22:14 Sodium (136-145) mmol/L Potassium (3.5-5.1) mmol/L Chloride (98-107) mmol/L Carbon Dioxide (21.0-32.0) mmol/L BUN (7.0-18.0) mg/dL Creatinine (0.6-1.0) mg/dL Est Cr Clr Drug Dosing mL/min Estimated GFR (MDRD) ml/min Glucose (74-106) mg/dL POC Glucose 382 H 375 H 323 H (70-99) mg/dL Calcium (8.5-10.1) mg/dL 02/10/21 02/10/21 02/11/21 Range/Units 23:05 23:05 00:59 Sodium 134 L (136-145) mmol/L Potassium 4.3 (3.5-5.1) mmol/L Chloride 103 (98-107) mmol/L Carbon Dioxide 25.1 (21.0-32.0) mmol/L BUN 35 H (7.0-18.0) mg/dL Creatinine 2.0 H (0.6-1.0) mg/dL Est Cr Clr Drug Dosing 27.63 mL/min Estimated GFR (MDRD) 25.1 ml/min Glucose 367 H (74-106) mg/dL POC Glucose 321 H 263 H (70-99) mg/dL Calcium 8.4 L (8.5-10.1) mg/dL 02/11/21 02/11/21 02/11/21 Range/Units 03:06 03:06 06:19 Sodium 137 (136-145) mmol/L Potassium 4.4 (3.5-5.1) mmol/L Chloride 107 (98-107) mmol/L Carbon Dioxide 25.1 (21.0-32.0) mmol/L BUN 34 H (7.0-18.0) mg/dL Creatinine 1.9 H (0.6-1.0) mg/dL Est Cr Clr Drug Dosing 29.09 mL/min Estimated GFR (MDRD) 26.6 ml/min Glucose 264 H (74-106) mg/dL POC Glucose 254 H 168 H (70-99) mg/dL Calcium 8.0 L (8.5-10.1) mg/dL 02/11/21 02/11/21 02/11/21 Range/Units 07:04 08:16 10:22 Sodium 138 (136-145) mmol/L Potassium 4.2 (3.5-5.1) mmol/L Chloride 106 (98-107) mmol/L Carbon Dioxide 22.6 (21.0-32.0) mmol/L BUN 33 H (7.0-18.0) mg/dL Creatinine 1.8 H (0.6-1.0) mg/dL Est Cr Clr Drug Dosing 30.70 mL/min Estimated GFR (MDRD) 28.3 ml/min Glucose 181 H (74-106) mg/dL POC Glucose 157 H 175 H (70-99) mg/dL Calcium 8.1 L (8.5-10.1) mg/dL 02/11/21 02/11/21 02/11/21 Range/Units 11:15 12:40 14:32 Sodium 137 (136-145) mmol/L Potassium 4.1 (3.5-5.1) mmol/L Chloride 106 (98-107) mmol/L Carbon Dioxide 22.3 (21.0-32.0) mmol/L BUN 32 H (7.0-18.0) mg/dL Creatinine 1.8 H (0.6-1.0) mg/dL Est Cr Clr Drug Dosing 30.70 mL/min Estimated GFR (MDRD) 28.3 ml/min Glucose 262 H (74-106) mg/dL POC Glucose 351 H 445 H* (70-99) mg/dL Calcium 8.0 L (8.5-10.1) mg/dL 02/11/21 02/11/21 Range/Units 14:58 16:11 Sodium 133 L (136-145) mmol/L Potassium 5.2 H (3.5-5.1) mmol/L Chloride 103 (98-107) mmol/L Carbon Dioxide 22.2 (21.0-32.0) mmol/L BUN 34 H (7.0-18.0) mg/dL Creatinine 1.9 H (0.6-1.0) mg/dL Est Cr Clr Drug Dosing 29.09 mL/min Estimated GFR (MDRD) 26.6 ml/min Glucose 491 H (74-106) mg/dL POC Glucose 474 H* (70-99) mg/dL Calcium 7.9 L (8.5-10.1) mg/dL Result Diagrams: 02/10/21 07:15 02/11/21 14:58 Sepsis Event Note - Evaluation Sepsis Screening Result: Sepsis Risk - Focused Exam Vital Signs: Vital Signs Temp Resp BP Pulse Ox Pulse Ox 02/11/21 17:00 36.6 C 30 H 170/94 H 90 L 02/11/21 16:00 36.6 C 25 H 175/98 H 93 L 02/11/21 15:00 20 173/84 H 90 L 02/11/21 14:00 24 H 171/95 H 93 L 02/11/21 13:00 11 L 164/93 H 89 L 02/11/21 12:00 36.6 C 27 H 146/77 H 91 L 02/11/21 11:00 16 140/76 89 L 02/11/21 10:00 20 154/82 H 89 L 02/11/21 09:00 24 H 160/80 H 90 L 02/11/21 08:00 36.6 C 16 161/68 H 93 L 02/11/21 07:00 36.6 C 19 147/67 H 89 L 02/11/21 06:37 21 H 84 L 02/11/21 06:11 93 L 02/11/21 06:00 16 152/83 H 89 L - Problem List & Annotations (1) COVID-19 virus infection SNOMED Code(s): 145256304 Code(s): U07.1 - COVID-19 Status: Acute Current Visit: Yes (2) Pulmonary embolism SNOMED Code(s): 12784687 Code(s): I26.99 - OTHER PULMONARY EMBOLISM WITHOUT ACUTE COR PULMONALE Status: Acute Current Visit: Yes - Problem List Review Problem List Initiated/Reviewed/Updated: Yes - My Orders Last 24 Hours: My Active Orders 02/11/21 Breakfast ADA Diabetic [[employer] Diet] [DIET] 02/11/21 14:40 Dextrose 50% in Water 50 ml IVPUSH ASDIRECTED PRN Glucagon,Human Recombinant [GlucaGen] 1 mg IM ASDIRECTED PRN 02/11/21 14:45 Insulin Glarg,Human.Rec.Analog [LantUS Solostar] 48 units SUBCUT DAILY 02/12/21 05:11 CBC WITH AUTO DIFF [HEME] AM COMPREHENSIVE METABOLIC PN,CMP [CHEM] AM 02/13/21 05:11 CBC WITH AUTO DIFF [HEME] AM COMPREHENSIVE METABOLIC PN,CMP [CHEM] AM 02/14/21 05:11 CBC WITH AUTO DIFF [HEME] AM COMPREHENSIVE METABOLIC PN,CMP [CHEM] AM - Plan Plan:: 66 yo female admitted with COVID-19 and PE Pulmonary embolism secondary to recent COVID 19 infection continue Eliquis COVID 19 infection Treating with Dexamethasone Acute hypoxemic respiratory failure due to # 2 above nebs, oxygen supplementation, incentive spirometry T2DM switched to insulin drip last night due to increasing anion gap, gap has now closed so will transition back to subqu insulin CKD stage 3 Gentle hydration following the CT contrast Avoid nephrotoxins Follow bun/ cr in am. CAD- stable. Pt has no angina symptoms. Seen on CT scan chest. Pt will need out pt follow up with her PCP regarding a cardiology referral. Full code status
[2021-02-11] MEDS: Pantoprazole 40 MG Tab.CR PO SCH (19:00)
[2021-02-11] MEDS: Losartan 50 MG Tab PO SCH (19:59)
[2021-02-12] MEDS: Albuterol/Ipratropium 3.0-0.5 MG/3 ML Neb Soln NEB SCH ×5 (00:04→23:53)
[2021-02-12 06:28] LABS: CARBON DIOXIDE,CO2 23.6 mmol/L (21.0-32.0); POTASSIUM,K 4.4 mmol/L (3.5-5.1)
[2021-02-12] MEDS: Gabapentin 300 MG Cap PO SCH ×2 (08:53→20:29)
[2021-02-12] MEDS: Aspirin 81 MG Tab.EC PO SCH (08:53)
[2021-02-12] MEDS: Dexamethasone 4 MG Tab PO SCH (08:53)
[2021-02-12] MEDS: Pantoprazole 40 MG Tab.CR PO SCH (08:53)
[2021-02-12] MEDS ORDERED: 50% Dextrose in Water 50 ML Syringe IVPUSH PRN ×2 (09:25→09:27)
[2021-02-12] MEDS ORDERED: Glucagon,Human Recombinant 1 MG Vial IM PRN ×2 (09:25→09:27)
[2021-02-12] MEDS: Apixaban 5 MG Tab PO SCH ×2 (11:05→20:28)
[2021-02-12] MEDS: Insulin Glargine,Human Rec. Analog 100 Units/ML 3 ML Pen SUBCUT SCH (11:05)
[2021-02-12] MEDS: Insulin Aspart 100 Units/ML 3 ML Pen SUBCUT SCH ×4 (11:14→17:35)
--- NOTE | 2021-02-12 17:22 | PCM.PN ---
- General Info Date of Service: 02/12/21 - Review of Systems Systems Review Comment:: feeling better, but reports chest congestion with greenish yellow sputum. She is thinking she needs an antibiotic - Patient Data Vitals - Most Recent: Last Vital Signs Temp 36.7 C 02/12/21 16:00 Pulse 80 02/12/21 16:00 Resp 20 02/12/21 16:00 BP 151/93 H 02/12/21 16:00 Pulse Ox 94 L 02/12/21 16:00 Weight - Most Recent: 77.02 kg I&O - Last 24 Hours: Intake & Output 02/12/21 02/12/21 02/12/21 06:59 14:59 22:59 Intake Total 400 Balance 400 Lab Results Last 24 Hours: Laboratory Results - last 24 hr 02/11/21 02/11/21 02/11/21 Range/Units 17:57 20:06 22:22 WBC (4.0-11.0) K/uL RBC (4.30-5.90) M/uL Hgb (12.0-16.0) g/dL Hct (36.0-46.0) % MCV (80.0-98.0) fL MCH (27.0-32.0) pg MCHC (31.0-37.0) g/dL RDW Std Deviation (28.0-62.0) fl RDW Coeff of Lv (11.0-15.0) % Plt Count (150-400) K/uL MPV (7.40-12.00) fL Neut % (Auto) (48.0-80.0) % Lymph % (Auto) (16.0-40.0) % Benzie % (Auto) (0.0-15.0) % Eos % (Auto) (0.0-7.0) % Baso % (Auto) (0.0-1.5) % Neut # (Auto) (1.4-5.7) K/uL Lymph # (Auto) (0.6-2.4) K/uL Benzie # (Auto) (0.0-0.8) K/uL Eos # (Auto) (0.0-0.7) K/uL Baso # (Auto) (0.0-0.1) K/uL Nucleated RBC % /100WBC Nucleated RBCs # K/uL Sodium (136-145) mmol/L Potassium (3.5-5.1) mmol/L Chloride (98-107) mmol/L Carbon Dioxide (21.0-32.0) mmol/L BUN (7.0-18.0) mg/dL Creatinine (0.6-1.0) mg/dL Est Cr Clr Drug Dosing mL/min Estimated GFR (MDRD) ml/min Glucose (74-106) mg/dL POC Glucose 397 H 403 H* 324 H (70-99) mg/dL Calcium (8.5-10.1) mg/dL Total Bilirubin (0.2-1.0) mg/dL AST (15-37) IU/L ALT (14-63) IU/L Alkaline Phosphatase (46-116) U/L Total Protein (6.4-8.2) g/dL Albumin (3.4-5.0) g/dL Globulin (2.6-4.0) g/dL Albumin/Globulin Ratio (0.9-1.6) 02/11/21 02/12/21 02/12/21 Range/Units 23:56 02:05 04:30 WBC (4.0-11.0) K/uL RBC (4.30-5.90) M/uL Hgb (12.0-16.0) g/dL Hct (36.0-46.0) % MCV (80.0-98.0) fL MCH (27.0-32.0) pg MCHC (31.0-37.0) g/dL RDW Std Deviation (28.0-62.0) fl RDW Coeff of Lv (11.0-15.0) % Plt Count (150-400) K/uL MPV (7.40-12.00) fL Neut % (Auto) (48.0-80.0) % Lymph % (Auto) (16.0-40.0) % Benzie % (Auto) (0.0-15.0) % Eos % (Auto) (0.0-7.0) % Baso % (Auto) (0.0-1.5) % Neut # (Auto) (1.4-5.7) K/uL Lymph # (Auto) (0.6-2.4) K/uL Benzie # (Auto) (0.0-0.8) K/uL Eos # (Auto) (0.0-0.7) K/uL Baso # (Auto) (0.0-0.1) K/uL Nucleated RBC % /100WBC Nucleated RBCs # K/uL Sodium (136-145) mmol/L Potassium (3.5-5.1) mmol/L Chloride (98-107) mmol/L Carbon Dioxide (21.0-32.0) mmol/L BUN (7.0-18.0) mg/dL Creatinine (0.6-1.0) mg/dL Est Cr Clr Drug Dosing mL/min Estimated GFR (MDRD) ml/min Glucose (74-106) mg/dL POC Glucose 273 H 221 H 165 H (70-99) mg/dL Calcium (8.5-10.1) mg/dL Total Bilirubin (0.2-1.0) mg/dL AST (15-37) IU/L ALT (14-63) IU/L Alkaline Phosphatase (46-116) U/L Total Protein (6.4-8.2) g/dL Albumin (3.4-5.0) g/dL Globulin (2.6-4.0) g/dL Albumin/Globulin Ratio (0.9-1.6) 02/12/21 02/12/21 02/12/21 Range/Units 05:48 05:48 05:48 WBC 12.52 H (4.0-11.0) K/uL RBC 3.05 L (4.30-5.90) M/uL Hgb 9.4 L (12.0-16.0) g/dL Hct 27.6 L (36.0-46.0) % MCV 90.5 (80.0-98.0) fL MCH 30.8 (27.0-32.0) pg MCHC 34.1 (31.0-37.0) g/dL RDW Std Deviation 43.3 (28.0-62.0) fl RDW Coeff of Lv 13 (11.0-15.0) % Plt Count 378 (150-400) K/uL MPV 9.30 (7.40-12.00) fL Neut % (Auto) 72.2 (48.0-80.0) % Lymph % (Auto) 17.3 (16.0-40.0) % Benzie % (Auto) 9.7 (0.0-15.0) % Eos % (Auto) 0.6 (0.0-7.0) % Baso % (Auto) 0.2 (0.0-1.5) % Neut # (Auto) 9.0 H (1.4-5.7) K/uL Lymph # (Auto) 2.2 (0.6-2.4) K/uL Benzie # (Auto) 1.2 H (0.0-0.8) K/uL Eos # (Auto) 0.1 (0.0-0.7) K/uL Baso # (Auto) 0.0 (0.0-0.1) K/uL Nucleated RBC % 0.0 /100WBC Nucleated RBCs # 0 K/uL Sodium 138 (136-145) mmol/L Potassium 4.4 (3.5-5.1) mmol/L Chloride 107 (98-107) mmol/L Carbon Dioxide 23.6 (21.0-32.0) mmol/L BUN 39 H (7.0-18.0) mg/dL Creatinine 1.8 H (0.6-1.0) mg/dL Est Cr Clr Drug Dosing 30.70 mL/min Estimated GFR (MDRD) 28.3 ml/min Glucose 159 H (74-106) mg/dL POC Glucose 141 H (70-99) mg/dL Calcium 8.0 L (8.5-10.1) mg/dL Total Bilirubin 0.2 (0.2-1.0) mg/dL AST 15 (15-37) IU/L ALT 17 (14-63) IU/L Alkaline Phosphatase 122 H (46-116) U/L Total Protein 6.2 L (6.4-8.2) g/dL Albumin 1.1 L (3.4-5.0) g/dL Globulin 5.1 H (2.6-4.0) g/dL Albumin/Globulin Ratio 0.2 L (0.9-1.6) 02/12/21 Range/Units 11:10 WBC (4.0-11.0) K/uL RBC (4.30-5.90) M/uL Hgb (12.0-16.0) g/dL Hct (36.0-46.0) % MCV (80.0-98.0) fL MCH (27.0-32.0) pg MCHC (31.0-37.0) g/dL RDW Std Deviation (28.0-62.0) fl RDW Coeff of Lv (11.0-15.0) % Plt Count (150-400) K/uL MPV (7.40-12.00) fL Neut % (Auto) (48.0-80.0) % Lymph % (Auto) (16.0-40.0) % Benzie % (Auto) (0.0-15.0) % Eos % (Auto) (0.0-7.0) % Baso % (Auto) (0.0-1.5) % Neut # (Auto) (1.4-5.7) K/uL Lymph # (Auto) (0.6-2.4) K/uL Benzie # (Auto) (0.0-0.8) K/uL Eos # (Auto) (0.0-0.7) K/uL Baso # (Auto) (0.0-0.1) K/uL Nucleated RBC % /100WBC Nucleated RBCs # K/uL Sodium (136-145) mmol/L Potassium (3.5-5.1) mmol/L Chloride (98-107) mmol/L Carbon Dioxide (21.0-32.0) mmol/L BUN (7.0-18.0) mg/dL Creatinine (0.6-1.0) mg/dL Est Cr Clr Drug Dosing mL/min Estimated GFR (MDRD) ml/min Glucose (74-106) mg/dL POC Glucose 182 H (70-99) mg/dL Calcium (8.5-10.1) mg/dL Total Bilirubin (0.2-1.0) mg/dL AST (15-37) IU/L ALT (14-63) IU/L Alkaline Phosphatase (46-116) U/L Total Protein (6.4-8.2) g/dL Albumin (3.4-5.0) g/dL Globulin (2.6-4.0) g/dL Albumin/Globulin Ratio (0.9-1.6) Med Orders - Current: Current Medications Acetaminophen (Acetaminophen 325 Mg Tab) 650 mg PO Q4H PRN PRN Reason: Pain (Mild 1-3)/fever Last Admin: 02/10/21 01:26 Dose: 650 mg Documented by: Albuterol/Ipratropium (Albuterol/Ipratropium 3.0-0.5 Mg/3 Ml Neb Soln) 3 ml NEB Q6HRRT [facility] Last Admin: 02/12/21 11:20 Dose: 3 ml Documented by: Apixaban (Apixaban 5 Mg Tab) 5 mg PO Q12HR [facility] Last Admin: 02/12/21 11:05 Dose: 5 mg Documented by: Aspirin (Aspirin 81 Mg Tab.Ec) 81 mg PO DAILY [facility] Last Admin: 02/12/21 08:53 Dose: 81 mg Documented by: Benzonatate (Benzonatate 100 Mg Cap) 100 mg PO Q8H PRN PRN Reason: Cough Dexamethasone (Dexamethasone 4 Mg Tab) 6 mg PO DAILY [facility] Stop: 02/20/21 11:31 Last Admin: 02/12/21 08:53 Dose: 6 mg Documented by: Dextrose/Water (50% Dextrose In Water 50 Ml Syringe) 50 ml IVPUSH ASDIRECTED PRN PRN Reason: Hypoglycemia Dextrose/Water (50% Dextrose In Water 50 Ml Syringe) 50 ml IVPUSH ASDIRECTED PRN PRN Reason: Hypoglycemia Gabapentin (Gabapentin 300 Mg Cap) 300 mg PO DAILY [facility] Last Admin: 02/12/21 08:53 Dose: 300 mg Documented by: Gabapentin (Gabapentin 300 Mg Cap) 600 mg PO BEDTIME [facility] Last Admin: 02/11/21 20:13 Dose: 300 mg Documented by: Glucagon (Glucagon,Human Recombinant 1 Mg Vial) 1 mg IM ASDIRECTED PRN PRN Reason: Hypoglycemia Glucagon (Glucagon,Human Recombinant 1 Mg Vial) 1 mg IM ASDIRECTED PRN PRN Reason: Hypoglycemia Sodium Chloride (Normal Saline) 500 mls @ 75 mls/hr IV ASDIRECTED [facility] Last Admin: 02/10/21 04:50 Dose: 75 mls/hr Documented by: Sodium Chloride (Normal Saline) 500 mls @ 50 mls/hr IV ASDIRECTED [facility] Last Admin: 02/10/21 16:24 Dose: 50 mls/hr Documented by: Levofloxacin/Dextrose 750 mg/ (Premix) 150 mls @ 100 mls/hr IV Q24H [facility] Insulin Aspart (Insulin Aspart 100 Units/Ml 3 Ml Pen) 10 unit SUBCUT TIDAC [facility] Last Admin: 02/12/21 11:14 Dose: 10 units Documented by: Insulin Aspart (Insulin Aspart 100 Units/Ml 3 Ml Pen) 0 unit SUBCUT TIDAC [facility]; Protocol Last Admin: 02/12/21 11:15 Dose: 2 units Documented by: Insulin Glargine (Insulin Glargine,Human Rec. Analog 100 Units/Ml 3 Ml Pen) 48 units SUBCUT DAILY [facility] Last Admin: 02/12/21 11:05 Dose: 48 units Documented by: Losartan Potassium (Losartan 50 Mg Tab) 50 mg PO BEDTIME [facility] Last Admin: 02/11/21 19:59 Dose: 50 mg Documented by: Pantoprazole Sodium (Pantoprazole 40 Mg Tab.Cr) 40 mg PO DAILY [facility] Last Admin: 02/12/21 08:53 Dose: 40 mg Documented by: Senna/Docusate Sodium (Docusate Sodium/Sennosides Tab) 1 each PO BID PRN PRN Reason: Constipation Discontinued Medications Dextrose/Water (50% Dextrose In Water 50 Ml Syringe) 50 ml IVPUSH ASDIRECTED [place] N PRN Reason: Hypoglycemia Dextrose/Water (50% Dextrose In Water 50 Ml Syringe) 50 ml IVPUSH ASDIRECTED PRN PRN Reason: Hypoglycemia Enoxaparin Sodium (Enoxaparin 40 Mg/0.4 Ml Syringe) 40 mg SUBCUT DAILY [facility] Last Admin: 02/10/21 01:46 Dose: Not Given Documented by: Glucagon (Glucagon,Human Recombinant 1 Mg Vial) 1 mg IM ASDIRECTED PRN PRN Reason: Hypoglycemia Glucagon (Glucagon,Human Recombinant 1 Mg Vial) 1 mg IM ASDIRECTED PRN PRN Reason: Hypoglycemia Heparin Sodium (Porcine) (Heparin Sodium 5,000 Units/Ml Vial) 5,000 units SUBCUT Q12H [facility] Last Admin: 02/10/21 00:03 Dose: 5,000 units Documented by: Sodium Chloride (Normal Saline) 500 mls @ 999 mls/hr IV .BOLUS [facility] Last Admin: 02/09/21 20:32 Dose: 999 mls/hr Documented by: Insulin Regular in 0.9 % NACL (Myxredlin In Ns 100 Unit/100 Ml) 100 mls @ 7.702 mls/hr IV TITRATE [facility]; Protocol Insulin Regular in 0.9 % NACL (Myxredlin In Ns 100 Unit/100 Ml) 100 mls @ 1 mls/hr IV TITRATE [facility]; Protocol Last Titration: 02/11/21 06:24 Dose: 1.5 mls/hr, 1.5 mls/hr Documented by: Sodium Chloride (Normal Saline) 1,000 mls @ 50 mls/hr IV ASDIRECTED [facility] Insulin Regular in 0.9 % NACL (Myxredlin In Ns 100 Unit/100 Ml) 100 mls @ 1 mls/hr IV TITRATE [facility]; Protocol Last Titration: 02/12/21 05:52 Dose: 1 mls/hr, 1 mls/hr Documented by: Insulin Aspart (Insulin Aspart 100 Units/Ml 3 Ml Pen) 0 unit SUBCUT TIDAC [facility]; Protocol Last Admin: 02/10/21 12:25 Dose: 20 unit Documented by: Insulin Aspart (Insulin Aspart 100 Units/Ml 3 Ml Pen) 15 unit SUBCUT TIDAC [facility] Insulin Glargine (Insulin Glargine,Human Rec. Analog 100 Units/Ml 3 Ml Pen) 48 units SUBCUT BEDTIME [facility] Last Admin: 02/10/21 00:03 Dose: 48 units Documented by: Insulin Glargine (Insulin Glargine,Human Rec. Analog 100 Units/Ml 3 Ml Pen) 48 units SUBCUT BEDTIME [facility] Oxycodone HCl (Oxycodone 5 Mg Tab) 5 mg PO Q4H PRN PRN Reason: Pain (moderate 4-6) - Exam General: Alert, Oriented HEENT: Pupils Equal Neck: Supple Lungs: Normal Respiratory Effort, Rhonchi Cardiovascular: Regular Rate, Regular Rhythm GI/Abdominal Exam: Soft, Non-Tender Extremities: Non-Tender, No Pedal Edema Skin: Warm, Dry, Intact Neurological: No New Focal Deficit - Patient Data Lab Results Last 24 hrs: Laboratory Results - last 24 hr 02/11/21 02/11/21 02/11/21 Range/Units 17:57 20:06 22:22 WBC (4.0-11.0) K/uL RBC (4.30-5.90) M/uL Hgb (12.0-16.0) g/dL Hct (36.0-46.0) % MCV (80.0-98.0) fL MCH (27.0-32.0) pg MCHC (31.0-37.0) g/dL RDW Std Deviation (28.0-62.0) fl RDW Coeff of Lv (11.0-15.0) % Plt Count (150-400) K/uL MPV (7.40-12.00) fL Neut % (Auto) (48.0-80.0) % Lymph % (Auto) (16.0-40.0) % Benzie % (Auto) (0.0-15.0) % Eos % (Auto) (0.0-7.0) % Baso % (Auto) (0.0-1.5) % Neut # (Auto) (1.4-5.7) K/uL Lymph # (Auto) (0.6-2.4) K/uL Benzie # (Auto) (0.0-0.8) K/uL Eos # (Auto) (0.0-0.7) K/uL Baso # (Auto) (0.0-0.1) K/uL Nucleated RBC % /100WBC Nucleated RBCs # K/uL Sodium (136-145) mmol/L Potassium (3.5-5.1) mmol/L Chloride (98-107) mmol/L Carbon Dioxide (21.0-32.0) mmol/L BUN (7.0-18.0) mg/dL Creatinine (0.6-1.0) mg/dL Est Cr Clr Drug Dosing mL/min Estimated GFR (MDRD) ml/min Glucose (74-106) mg/dL POC Glucose 397 H 403 H* 324 H (70-99) mg/dL Calcium (8.5-10.1) mg/dL Total Bilirubin (0.2-1.0) mg/dL AST (15-37) IU/L ALT (14-63) IU/L Alkaline Phosphatase (46-116) U/L Total Protein (6.4-8.2) g/dL Albumin (3.4-5.0) g/dL Globulin (2.6-4.0) g/dL Albumin/Globulin Ratio (0.9-1.6) 02/11/21 02/12/21 02/12/21 Range/Units 23:56 02:05 04:30 WBC (4.0-11.0) K/uL RBC (4.30-5.90) M/uL Hgb (12.0-16.0) g/dL Hct (36.0-46.0) % MCV (80.0-98.0) fL MCH (27.0-32.0) pg MCHC (31.0-37.0) g/dL RDW Std Deviation (28.0-62.0) fl RDW Coeff of Lv (11.0-15.0) % Plt Count (150-400) K/uL MPV (7.40-12.00) fL Neut % (Auto) (48.0-80.0) % Lymph % (Auto) (16.0-40.0) % Benzie % (Auto) (0.0-15.0) % Eos % (Auto) (0.0-7.0) % Baso % (Auto) (0.0-1.5) % Neut # (Auto) (1.4-5.7) K/uL Lymph # (Auto) (0.6-2.4) K/uL Benzie # (Auto) (0.0-0.8) K/uL Eos # (Auto) (0.0-0.7) K/uL Baso # (Auto) (0.0-0.1) K/uL Nucleated RBC % /100WBC Nucleated RBCs # K/uL Sodium (136-145) mmol/L Potassium (3.5-5.1) mmol/L Chloride (98-107) mmol/L Carbon Dioxide (21.0-32.0) mmol/L BUN (7.0-18.0) mg/dL Creatinine (0.6-1.0) mg/dL Est Cr Clr Drug Dosing mL/min Estimated GFR (MDRD) ml/min Glucose (74-106) mg/dL POC Glucose 273 H 221 H 165 H (70-99) mg/dL Calcium (8.5-10.1) mg/dL Total Bilirubin (0.2-1.0) mg/dL AST (15-37) IU/L ALT (14-63) IU/L Alkaline Phosphatase (46-116) U/L Total Protein (6.4-8.2) g/dL Albumin (3.4-5.0) g/dL Globulin (2.6-4.0) g/dL Albumin/Globulin Ratio (0.9-1.6) 02/12/21 02/12/21 02/12/21 Range/Units 05:48 05:48 05:48 WBC 12.52 H (4.0-11.0) K/uL RBC 3.05 L (4.30-5.90) M/uL Hgb 9.4 L (12.0-16.0) g/dL Hct 27.6 L (36.0-46.0) % MCV 90.5 (80.0-98.0) fL MCH 30.8 (27.0-32.0) pg MCHC 34.1 (31.0-37.0) g/dL RDW Std Deviation 43.3 (28.0-62.0) fl RDW Coeff of Lv 13 (11.0-15.0) % Plt Count 378 (150-400) K/uL MPV 9.30 (7.40-12.00) fL Neut % (Auto) 72.2 (48.0-80.0) % Lymph % (Auto) 17.3 (16.0-40.0) % Benzie % (Auto) 9.7 (0.0-15.0) % Eos % (Auto) 0.6 (0.0-7.0) % Baso % (Auto) 0.2 (0.0-1.5) % Neut # (Auto) 9.0 H (1.4-5.7) K/uL Lymph # (Auto) 2.2 (0.6-2.4) K/uL Benzie # (Auto) 1.2 H (0.0-0.8) K/uL Eos # (Auto) 0.1 (0.0-0.7) K/uL Baso # (Auto) 0.0 (0.0-0.1) K/uL Nucleated RBC % 0.0 /100WBC Nucleated RBCs # 0 K/uL Sodium 138 (136-145) mmol/L Potassium 4.4 (3.5-5.1) mmol/L Chloride 107 (98-107) mmol/L Carbon Dioxide 23.6 (21.0-32.0) mmol/L BUN 39 H (7.0-18.0) mg/dL Creatinine 1.8 H (0.6-1.0) mg/dL Est Cr Clr Drug Dosing 30.70 mL/min Estimated GFR (MDRD) 28.3 ml/min Glucose 159 H (74-106) mg/dL POC Glucose 141 H (70-99) mg/dL Calcium 8.0 L (8.5-10.1) mg/dL Total Bilirubin 0.2 (0.2-1.0) mg/dL AST 15 (15-37) IU/L ALT 17 (14-63) IU/L Alkaline Phosphatase 122 H (46-116) U/L Total Protein 6.2 L (6.4-8.2) g/dL Albumin 1.1 L (3.4-5.0) g/dL Globulin 5.1 H (2.6-4.0) g/dL Albumin/Globulin Ratio 0.2 L (0.9-1.6) 02/12/21 Range/Units 11:10 WBC (4.0-11.0) K/uL RBC (4.30-5.90) M/uL Hgb (12.0-16.0) g/dL Hct (36.0-46.0) % MCV (80.0-98.0) fL MCH (27.0-32.0) pg MCHC (31.0-37.0) g/dL RDW Std Deviation (28.0-62.0) fl RDW Coeff of Lv (11.0-15.0) % Plt Count (150-400) K/uL MPV (7.40-12.00) fL Neut % (Auto) (48.0-80.0) % Lymph % (Auto) (16.0-40.0) % Benzie % (Auto) (0.0-15.0) % Eos % (Auto) (0.0-7.0) % Baso % (Auto) (0.0-1.5) % Neut # (Auto) (1.4-5.7) K/uL Lymph # (Auto) (0.6-2.4) K/uL Benzie # (Auto) (0.0-0.8) K/uL Eos # (Auto) (0.0-0.7) K/uL Baso # (Auto) (0.0-0.1) K/uL Nucleated RBC % /100WBC Nucleated RBCs # K/uL Sodium (136-145) mmol/L Potassium (3.5-5.1) mmol/L Chloride (98-107) mmol/L Carbon Dioxide (21.0-32.0) mmol/L BUN (7.0-18.0) mg/dL Creatinine (0.6-1.0) mg/dL Est Cr Clr Drug Dosing mL/min Estimated GFR (MDRD) ml/min Glucose (74-106) mg/dL POC Glucose 182 H (70-99) mg/dL Calcium (8.5-10.1) mg/dL Total Bilirubin (0.2-1.0) mg/dL AST (15-37) IU/L ALT (14-63) IU/L Alkaline Phosphatase (46-116) U/L Total Protein (6.4-8.2) g/dL Albumin (3.4-5.0) g/dL Globulin (2.6-4.0) g/dL Albumin/Globulin Ratio (0.9-1.6) Result Diagrams: 02/12/21 05:48 02/12/21 05:48 Sepsis Event Note - Evaluation Sepsis Screening Result: Sepsis Risk - Focused Exam Vital Signs: Vital Signs Temp Pulse Resp BP Pulse Ox 02/12/21 16:00 36.7 C 80 20 151/93 H 94 L 02/12/21 15:00 26 H 94 L 02/12/21 14:00 17 144/81 H 95 02/12/21 13:00 36.6 C 26 H 155/92 H 91 L 02/12/21 12:00 36.6 C 26 H 134/74 89 L 02/12/21 11:00 20 158/81 H 90 L 02/12/21 10:00 16 154/86 H 89 L 02/12/21 09:00 19 160/95 H 89 L 02/12/21 08:00 36.6 C 22 H 136/91 H 87 L 02/12/21 07:00 36.6 C 24 H 147/82 H 85 L 02/12/21 06:00 28 H 142/78 H 80 L - Problem List & Annotations (1) COVID-19 virus infection SNOMED Code(s): 267462702 Code(s): U07.1 - COVID-19 Status: Acute Current Visit: Yes (2) Pulmonary embolism SNOMED Code(s): 99832573 Code(s): I26.99 - OTHER PULMONARY EMBOLISM WITHOUT ACUTE COR PULMONALE Status: Acute Current Visit: Yes - Problem List Review Problem List Initiated/Reviewed/Updated: Yes - My Orders Last 24 Hours: My Active Orders 02/11/21 18:00 Pantoprazole [ProTONIX] 40 mg PO DAILY 02/12/21 09:25 Blood Glucose Check, Bedside [RC] TIDAC 02/12/21 09:27 Dextrose 50% in Water 50 ml IVPUSH ASDIRECTED PRN Glucagon,Human Recombinant [GlucaGen] 1 mg IM ASDIRECTED PRN 02/12/21 11:30 Insulin Aspart [NovoLOG] 10 unit SUBCUT TIDAC Insulin Aspart [NovoLOG] See Protocol SUBCUT TIDAC 02/12/21 15:08 Transfer Patient (Change bed) [ADT] Routine 02/12/21 17:15 Levofloxacin/Dextrose 5%-Water [Levaquin in D5W 750 MG/150 ML] 750 mg Premix Bag 1 bag IV Q24H 02/13/21 05:11 CBC WITH AUTO DIFF [HEME] AM COMPREHENSIVE METABOLIC PN,CMP [CHEM] AM 02/14/21 05:11 CBC WITH AUTO DIFF [HEME] AM COMPREHENSIVE METABOLIC PN,CMP [CHEM] AM - Plan Plan:: 66 yo female admitted with COVID-19 and PE Hypoxia: on 2 L NC PE: continue Eliquis COVID 19: continue Dexamethasone started Levaquin due to productive cough and elevation of white count T2DM: titrated of insulin drip and is back on subqu insulin Full code status
[2021-02-12] MEDS ORDERED: Levofloxacin/Dextrose 5%-Water 750 MG in Premix Bag 1 BAG IV SCH (18:00)
[2021-02-12] MEDS: Losartan 50 MG Tab PO SCH (20:30)
[2021-02-13] MEDS: Albuterol/Ipratropium 3.0-0.5 MG/3 ML Neb Soln NEB SCH ×3 (06:28→17:29)
[2021-02-13 07:50] LABS: CARBON DIOXIDE,CO2 23.8 mmol/L (21.0-32.0); POTASSIUM,K 4.6 mmol/L (3.5-5.1)
[2021-02-13] MEDS: Pantoprazole 40 MG Tab.CR PO SCH (08:11)
[2021-02-13] MEDS: Apixaban 5 MG Tab PO SCH ×2 (08:11→21:12)
[2021-02-13] MEDS: Aspirin 81 MG Tab.EC PO SCH (08:11)
[2021-02-13] MEDS: Gabapentin 300 MG Cap PO SCH ×2 (08:11→21:12)
[2021-02-13] MEDS: Dexamethasone 4 MG Tab PO SCH (08:12)
[2021-02-13] MEDS: Insulin Aspart 100 Units/ML 3 ML Pen SUBCUT SCH ×6 (08:13→17:51)
[2021-02-13] MEDS: Insulin Glargine,Human Rec. Analog 100 Units/ML 3 ML Pen SUBCUT SCH (08:14)
--- NOTE | 2021-02-13 12:46 | PCM.PN ---
- General Info Date of Service: 02/13/21 - Review of Systems Systems Review Comment:: feeling better, reports productive cough - Patient Data Vitals - Most Recent: Last Vital Signs Temp 36.2 C 02/13/21 12:00 Pulse 96 02/13/21 12:00 Resp 18 02/13/21 12:00 BP 106/62 02/13/21 12:00 Pulse Ox 97 02/13/21 12:00 Weight - Most Recent: 77.02 kg I&O - Last 24 Hours: Intake & Output 02/12/21 02/13/21 02/13/21 22:59 06:59 14:59 Intake Total 800 550 Output Total 850 1150 Balance -50 -600 Lab Results Last 24 Hours: Laboratory Results - last 24 hr 02/12/21 02/13/21 02/13/21 Range/Units 22:07 05:47 05:47 WBC 13.19 H (4.0-11.0) K/uL RBC 3.01 L (4.30-5.90) M/uL Hgb 9.3 L (12.0-16.0) g/dL Hct 27.5 L (36.0-46.0) % MCV 91.4 (80.0-98.0) fL MCH 30.9 (27.0-32.0) pg MCHC 33.8 (31.0-37.0) g/dL RDW Std Deviation 44.4 (28.0-62.0) fl RDW Coeff of Lv 14 (11.0-15.0) % Plt Count 368 (150-400) K/uL MPV 9.80 (7.40-12.00) fL Neut % (Auto) 66.9 (48.0-80.0) % Lymph % (Auto) 19.5 (16.0-40.0) % Harnett % (Auto) 11.4 (0.0-15.0) % Eos % (Auto) 2.0 (0.0-7.0) % Baso % (Auto) 0.2 (0.0-1.5) % Neut # (Auto) 8.8 H (1.4-5.7) K/uL Lymph # (Auto) 2.6 H (0.6-2.4) K/uL Harnett # (Auto) 1.5 H (0.0-0.8) K/uL Eos # (Auto) 0.3 (0.0-0.7) K/uL Baso # (Auto) 0.0 (0.0-0.1) K/uL Nucleated RBC % 0.0 /100WBC Nucleated RBCs # 0 K/uL Sodium 136 (136-145) mmol/L Potassium 4.6 (3.5-5.1) mmol/L Chloride 103 (98-107) mmol/L Carbon Dioxide 23.8 (21.0-32.0) mmol/L BUN 40 H (7.0-18.0) mg/dL Creatinine 1.8 H (0.6-1.0) mg/dL Est Cr Clr Drug Dosing 30.70 mL/min Estimated GFR (MDRD) 28.3 ml/min Glucose 200 H (74-106) mg/dL POC Glucose 281 H (70-99) mg/dL Calcium 8.0 L (8.5-10.1) mg/dL Total Bilirubin 0.2 (0.2-1.0) mg/dL AST 15 (15-37) IU/L ALT 19 (14-63) IU/L Alkaline Phosphatase 118 H (46-116) U/L Total Protein 6.0 L (6.4-8.2) g/dL Albumin 1.2 L (3.4-5.0) g/dL Globulin 4.8 H (2.6-4.0) g/dL Albumin/Globulin Ratio 0.3 L (0.9-1.6) 02/13/21 02/13/21 Range/Units 06:22 11:42 WBC (4.0-11.0) K/uL RBC (4.30-5.90) M/uL Hgb (12.0-16.0) g/dL Hct (36.0-46.0) % MCV (80.0-98.0) fL MCH (27.0-32.0) pg MCHC (31.0-37.0) g/dL RDW Std Deviation (28.0-62.0) fl RDW Coeff of Lv (11.0-15.0) % Plt Count (150-400) K/uL MPV (7.40-12.00) fL Neut % (Auto) (48.0-80.0) % Lymph % (Auto) (16.0-40.0) % Harnett % (Auto) (0.0-15.0) % Eos % (Auto) (0.0-7.0) % Baso % (Auto) (0.0-1.5) % Neut # (Auto) (1.4-5.7) K/uL Lymph # (Auto) (0.6-2.4) K/uL [place]ett # (Auto) (0.0-0.8) K/uL Eos # (Auto) (0.0-0.7) K/uL Baso # (Auto) (0.0-0.1) K/uL Nucleated RBC % /100WBC Nucleated RBCs # K/uL Sodium (136-145) mmol/L Potassium (3.5-5.1) mmol/L Chloride (98-107) mmol/L Carbon Dioxide (21.0-32.0) mmol/L BUN (7.0-18.0) mg/dL Creatinine (0.6-1.0) mg/dL Est Cr Clr Drug Dosing mL/min Estimated GFR (MDRD) ml/min Glucose (74-106) mg/dL POC Glucose 164 H 177 H (70-99) mg/dL Calcium (8.5-10.1) mg/dL Total Bilirubin (0.2-1.0) mg/dL AST (15-37) IU/L ALT (14-63) IU/L Alkaline Phosphatase (46-116) U/L Total Protein (6.4-8.2) g/dL Albumin (3.4-5.0) g/dL Globulin (2.6-4.0) g/dL Albumin/Globulin Ratio (0.9-1.6) Med Orders - Current: Current Medications Acetaminophen (Acetaminophen 325 Mg Tab) 650 mg PO Q4H PRN PRN Reason: Pain (Mild 1-3)/fever Last Admin: 02/10/21 01:26 Dose: 650 mg Documented by: Albuterol/Ipratropium (Albuterol/Ipratropium 3.0-0.5 Mg/3 Ml Neb Soln) 3 ml NEB Q6HRRT [facility] Last Admin: 02/13/21 11:17 Dose: 3 ml Documented by: Apixaban (Apixaban 5 Mg Tab) 5 mg PO Q12HR [facility] Last Admin: 02/13/21 08:11 Dose: 5 mg Documented by: Aspirin (Aspirin 81 Mg Tab.Ec) 81 mg PO DAILY [facility] Last Admin: 02/13/21 08:11 Dose: 81 mg Documented by: Benzonatate (Benzonatate 100 Mg Cap) 100 mg PO Q8H PRN PRN Reason: Cough Dexamethasone (Dexamethasone 4 Mg Tab) 6 mg PO DAILY [facility] Stop: 02/20/21 11:31 Last Admin: 02/13/21 08:12 Dose: 6 mg Documented by: Dextrose/Water (50% Dextrose In Water 50 Ml Syringe) 50 ml IVPUSH ASDIRECTED PRN PRN Reason: Hypoglycemia Dextrose/Water (50% Dextrose In Water 50 Ml Syringe) 50 ml IVPUSH ASDIRECTED PRN PRN Reason: Hypoglycemia Gabapentin (Gabapentin 300 Mg Cap) 300 mg PO DAILY [facility] Last Admin: 02/13/21 08:11 Dose: 300 mg Documented by: Gabapentin (Gabapentin 300 Mg Cap) 600 mg PO BEDTIME [facility] Last Admin: 02/12/21 20:29 Dose: 300 mg Documented by: Glucagon (Glucagon,Human Recombinant 1 Mg Vial) 1 mg IM ASDIRECTED PRN PRN Reason: Hypoglycemia Glucagon (Glucagon,Human Recombinant 1 Mg Vial) 1 mg IM ASDIRECTED PRN PRN Reason: Hypoglycemia Sodium Chloride (Normal Saline) 500 mls @ 75 mls/hr IV ASDIRECTED [facility] Last Admin: 02/10/21 04:50 Dose: 75 mls/hr Documented by: Sodium Chloride (Normal Saline) 500 mls @ 50 mls/hr IV ASDIRECTED [facility] Last Admin: 02/10/21 16:24 Dose: 50 mls/hr Documented by: Levofloxacin/Dextrose 750 mg/ (Premix) 150 mls @ 100 mls/hr IV Q48H [facility] Last Admin: 02/12/21 17:58 Dose: 100 mls/hr Documented by: Insulin Aspart (Insulin Aspart 100 Units/Ml 3 Ml Pen) 10 unit SUBCUT TIDAC [facility] Last Admin: 02/13/21 12:31 Dose: 10 units Documented by: Insulin Aspart (Insulin Aspart 100 Units/Ml 3 Ml Pen) 0 unit SUBCUT TIDAC [facility]; Protocol Last Admin: 02/13/21 12:31 Dose: 2 units Documented by: Insulin Glargine (Insulin Glargine,Human Rec. Analog 100 Units/Ml 3 Ml Pen) 48 units SUBCUT DAILY [facility] Last Admin: 02/13/21 08:14 Dose: 48 units Documented by: Losartan Potassium (Losartan 50 Mg Tab) 50 mg PO BEDTIME [facility] Last Admin: 02/12/21 20:30 Dose: 50 mg Documented by: Pantoprazole Sodium (Pantoprazole 40 Mg Tab.Cr) 40 mg PO DAILY [facility] Last Admin: 02/13/21 08:11 Dose: 40 mg Documented by: Senna/Docusate Sodium (Docusate Sodium/Sennosides Tab) 1 each PO BID PRN PRN Reason: Constipation Discontinued Medications Dextrose/Water (50% Dextrose In Water 50 Ml Syringe) 50 ml IVPUSH ASDIRECTED PRN PRN Reason: Hypoglycemia Dextrose/Water (50% Dextrose In Water 50 Ml Syringe) 50 ml IVPUSH ASDIRECTED PRN PRN Reason: Hypoglycemia Enoxaparin Sodium (Enoxaparin 40 Mg/0.4 Ml Syringe) 40 mg SUBCUT DAILY [facility] Last Admin: 02/10/21 01:46 Dose: Not Given Documented by: Glucagon (Glucagon,Human Recombinant 1 Mg Vial) 1 mg IM ASDIRECTED PRN PRN Reason: Hypoglycemia Glucagon (Glucagon,Human Recombinant 1 Mg Vial) 1 mg IM ASDIRECTED PRN PRN Reason: Hypoglycemia Heparin Sodium (Porcine) (Heparin Sodium 5,000 Units/Ml Vial) 5,000 units SUBCUT Q12H [facility] Last Admin: 02/10/21 00:03 Dose: 5,000 units Documented by: Sodium Chloride (Normal Saline) 500 mls @ 999 mls/hr IV .BOLUS [facility] Last Admin: 02/09/21 20:32 Dose: 999 mls/hr Documented by: Insulin Regular in 0.9 % NACL (Myxredlin In Ns 100 Unit/100 Ml) 100 mls @ 7.702 mls/hr IV TITRATE [facility]; Protocol Insulin Regular in 0.9 % NACL (Myxredlin In Ns 100 Unit/100 Ml) 100 mls @ 1 mls/hr IV TITRATE [facility]; Protocol Last Titration: 02/11/21 06:24 Dose: 1.5 mls/hr, 1.5 mls/hr Documented by: Sodium Chloride (Normal Saline) 1,000 mls @ 50 mls/hr IV ASDIRECTED [facility] Insulin Regular in 0.9 % NACL (Myxredlin In Ns 100 Unit/100 Ml) 100 mls @ 1 mls/hr IV TITRATE [facility]; Protocol Last Titration: 02/12/21 05:52 Dose: 1 mls/hr, 1 mls/hr Documented by: Insulin Aspart (Insulin Aspart 100 Units/Ml 3 Ml Pen) 0 unit SUBCUT TIDAC [facility]; Protocol Last Admin: 02/10/21 12:25 Dose: 20 unit Documented by: Insulin Aspart (Insulin Aspart 100 Units/Ml 3 Ml Pen) 15 unit SUBCUT TIDAC [facility] Insulin Glargine (Insulin Glargine,Human Rec. Analog 100 Units/Ml 3 Ml Pen) 48 units SUBCUT BEDTIME [facility] Last Admin: 02/10/21 00:03 Dose: 48 units Documented by: Insulin Glargine (Insulin Glargine,Human Rec. Analog 100 Units/Ml 3 Ml Pen) 48 units SUBCUT BEDTIME [facility] Oxycodone HCl (Oxycodone 5 Mg Tab) 5 mg PO Q4H PRN PRN Reason: Pain (moderate 4-6) - Exam General: Alert, Oriented Neck: Supple Lungs: Clear to Auscultation, Normal Respiratory Effort Cardiovascular: Regular Rate, Regular Rhythm GI/Abdominal Exam: Soft, Non-Tender Extremities: Non-Tender, No Pedal Edema Skin: Warm, Dry, Intact Neurological: No New Focal Deficit - Patient Data Lab Results Last 24 hrs: Laboratory Results - last 24 hr 02/12/21 02/13/21 02/13/21 Range/Units 22:07 05:47 05:47 WBC 13.19 H (4.0-11.0) K/uL RBC 3.01 L (4.30-5.90) M/uL Hgb 9.3 L (12.0-16.0) g/dL Hct 27.5 L (36.0-46.0) % MCV 91.4 (80.0-98.0) fL MCH 30.9 (27.0-32.0) pg MCHC 33.8 (31.0-37.0) g/dL RDW Std Deviation 44.4 (28.0-62.0) fl RDW Coeff of Lv 14 (11.0-15.0) % Plt Count 368 (150-400) K/uL MPV 9.80 (7.40-12.00) fL Neut % (Auto) 66.9 (48.0-80.0) % Lymph % (Auto) 19.5 (16.0-40.0) % [place]ett % (Auto) 11.4 (0.0-15.0) % Eos % (Auto) 2.0 (0.0-7.0) % Baso % (Auto) 0.2 (0.0-1.5) % Neut # (Auto) 8.8 H (1.4-5.7) K/uL Lymph # (Auto) 2.6 H (0.6-2.4) K/uL [place]ett # (Auto) 1.5 H (0.0-0.8) K/uL Eos # (Auto) 0.3 (0.0-0.7) K/uL Baso # (Auto) 0.0 (0.0-0.1) K/uL Nucleated RBC % 0.0 /100WBC Nucleated RBCs # 0 K/uL Sodium 136 (136-145) mmol/L Potassium 4.6 (3.5-5.1) mmol/L Chloride 103 (98-107) mmol/L Carbon Dioxide 23.8 (21.0-32.0) mmol/L BUN 40 H (7.0-18.0) mg/dL Creatinine 1.8 H (0.6-1.0) mg/dL Est Cr Clr Drug Dosing 30.70 mL/min Estimated GFR (MDRD) 28.3 ml/min Glucose 200 H (74-106) mg/dL POC Glucose 281 H (70-99) mg/dL Calcium 8.0 L (8.5-10.1) mg/dL Total Bilirubin 0.2 (0.2-1.0) mg/dL AST 15 (15-37) IU/L ALT 19 (14-63) IU/L Alkaline Phosphatase 118 H (46-116) U/L Total Protein 6.0 L (6.4-8.2) g/dL Albumin 1.2 L (3.4-5.0) g/dL Globulin 4.8 H (2.6-4.0) g/dL Albumin/Globulin Ratio 0.3 L (0.9-1.6) 02/13/21 02/13/21 Range/Units 06:22 11:42 WBC (4.0-11.0) K/uL RBC (4.30-5.90) M/uL Hgb (12.0-16.0) g/dL Hct (36.0-46.0) % MCV (80.0-98.0) fL MCH (27.0-32.0) pg MCHC (31.0-37.0) g/dL RDW Std Deviation (28.0-62.0) fl RDW Coeff of Lv (11.0-15.0) % Plt Count (150-400) K/uL MPV (7.40-12.00) fL Neut % (Auto) (48.0-80.0) % Lymph % (Auto) (16.0-40.0) % [place]ett % (Auto) (0.0-15.0) % Eos % (Auto) (0.0-7.0) % Baso % (Auto) (0.0-1.5) % Neut # (Auto) (1.4-5.7) K/uL Lymph # (Auto) (0.6-2.4) K/uL [place]ett # (Auto) (0.0-0.8) K/uL Eos # (Auto) (0.0-0.7) K/uL Baso # (Auto) (0.0-0.1) K/uL Nucleated RBC % /100WBC Nucleated RBCs # K/uL Sodium (136-145) mmol/L Potassium (3.5-5.1) mmol/L Chloride (98-107) mmol/L Carbon Dioxide (21.0-32.0) mmol/L BUN (7.0-18.0) mg/dL Creatinine (0.6-1.0) mg/dL Est Cr Clr Drug Dosing mL/min Estimated GFR (MDRD) ml/min Glucose (74-106) mg/dL POC Glucose 164 H 177 H (70-99) mg/dL Calcium (8.5-10.1) mg/dL Total Bilirubin (0.2-1.0) mg/dL AST (15-37) IU/L ALT (14-63) IU/L Alkaline Phosphatase (46-116) U/L Total Protein (6.4-8.2) g/dL Albumin (3.4-5.0) g/dL Globulin (2.6-4.0) g/dL Albumin/Globulin Ratio (0.9-1.6) Result Diagrams: 02/13/21 05:47 02/13/21 05:47 Sepsis Event Note - Evaluation Sepsis Screening Result: No Definite Risk - Focused Exam Vital Signs: Vital Signs Temp Pulse Resp BP Pulse Ox 02/13/21 12:00 36.2 C 96 18 106/62 97 02/13/21 08:00 36.9 C 91 16 144/75 H 94 L 02/13/21 04:39 36.6 C 97 16 143/79 H 92 L - Problem List & Annotations (1) COVID-19 virus infection SNOMED Code(s): 054332958 Code(s): U07.1 - COVID-19 Status: Acute Current Visit: Yes (2) Pulmonary embolism SNOMED Code(s): 94735040 Code(s): I26.99 - OTHER PULMONARY EMBOLISM WITHOUT ACUTE COR PULMONALE St atus: Acute Current Visit: Yes - Problem List Review Problem List Initiated/Reviewed/Updated: Yes - My Orders Last 24 Hours: My Active Orders 02/12/21 15:08 Transfer Patient (Change bed) [ADT] Routine 02/12/21 18:00 Levofloxacin/Dextrose 5%-Water [Levaquin in D5W 750 MG/150 ML] 750 mg Premix Bag 1 bag IV Q48H 02/14/21 05:11 CBC WITH AUTO DIFF [HEME] AM COMPREHENSIVE METABOLIC PN,CMP [CHEM] AM - Plan Plan:: 66 yo female admitted with COVID-19 and PE Hypoxia: on 2 L NC PE: continue Eliquis COVID 19: continue Dexamethasone continue Levaquin for possible pneumonia T2DM: subqu insulin Full code status
[2021-02-13] MEDS: Losartan 50 MG Tab PO SCH (21:12)
[2021-02-14] MEDS: Albuterol/Ipratropium 3.0-0.5 MG/3 ML Neb Soln NEB SCH ×3 (02:07→12:23)
[2021-02-14 06:46] LABS: CARBON DIOXIDE,CO2 26.5 mmol/L (21.0-32.0); POTASSIUM,K 4.1 mmol/L (3.5-5.1)
[2021-02-14] MEDS: Insulin Aspart 100 Units/ML 3 ML Pen SUBCUT SCH ×4 (07:55→12:18)
[2021-02-14] MEDS: Insulin Glargine,Human Rec. Analog 100 Units/ML 3 ML Pen SUBCUT SCH (08:00)
[2021-02-14] MEDS: Dexamethasone 4 MG Tab PO SCH (08:01)
[2021-02-14] MEDS: Pantoprazole 40 MG Tab.CR PO SCH (08:01)
[2021-02-14] MEDS: Gabapentin 300 MG Cap PO SCH (08:01)
[2021-02-14] MEDS: Apixaban 5 MG Tab PO SCH (08:01)
[2021-02-14] MEDS: Aspirin 81 MG Tab.EC PO SCH (08:02)
--- NOTE | 2021-02-14 12:36 | PCM.DCSUM1 ---
Discharge Summary - Discharge Data Discharge Date: 02/14/21 Discharge Disposition: Home, Self-Care 01 Condition: Good - Referral to Home Health Primary Care Physician: PCP None - Discharge Diagnosis/Problem(s) (1) COVID-19 virus infection SNOMED Code(s): 326537254 ICD Code: U07.1 - COVID-19 Status: Acute Current Visit: Yes (2) Pulmonary embolism SNOMED Code(s): 59642746 ICD Code: I26.99 - OTHER PULMONARY EMBOLISM WITHOUT ACUTE COR PULMONALE Status: Acute Current Visit: Yes - Patient Summary/Data Hospital Course: Neva Moura is a 66 y/o female with a h/o T2DM and CKD stage III who was transferred to our facility from [place], [place] for concerns of a possible pulmonary embolus. She was diagnosed with COVID 19 infection around Jan 22. She stayed home mostly in bed for about a week. She was a finally able to get stronger and get out of the house more last week. She has since then been eating more and doing more activities. Two days ago as she was doing her regular activities of daily living she noticed that she was easily running out of breath. She asked a friend to bring her to the nearest emergency dept in [place], [place]. She was evaluated and found to be hypoxemic in the low 80's on room air. She was given 2L oxygen by [place]. Her blood tests revealed a significantly elevated D dimer. She was therefore sent to our facility for further evaluation and management. She continues to have a dry cough but denies having any fevers, chills, diarrhea or loss of appetite. CT angio here reported PE in the subsegmental branches of the right lower lobe. She was started on Eliquis for her PE and dexamethasone for COVID. During her stay she did develop elevated blood glucose and was needing insulin drip as she was developing ketoacidosis. She was started on Levaquin due to productive cough and concerns for bacterial pneumonia. At discharge she was satting in the mid 80s with exertion so she was discharged on home oxygen. - Discharge Plan Prescriptions/Med Rec: Albuterol Sulfate [Albuterol Sulfate Hfa] 8.5 gm IH Q6HR PRN #1 hfa.[email or web address] PRN Reason: Wheezing Apixaban [Eliquis] 5 - 10 mg PO Q12HR #74 tablet levoFLOXacin [Levaquin] 750 mg PO Q48H #3 tab Home Medications: Home Meds Gabapentin [Neurontin] 300 mg PO DAILY 02/09/21 [History] Gabapentin [Neurontin] 600 mg PO BEDTIME 02/09/21 [History] Insulin Glarg,Human.Rec.Analog [Lantus] 48 unit SUBCUT BEDTIME 02/09/21 [History] Losartan [Cozaar] 50 mg PO BEDTIME 02/09/21 [History] Albuterol Sulfate [Albuterol Sulfate Hfa] 8.5 gm IH Q6HR PRN #1 hfa.aer.ad 02/14/21 [Rx] Apixaban [Eliquis] 5 - 10 mg PO Q12HR #74 tablet 02/14/21 [Rx] levoFLOXacin [Levaquin] 750 mg PO Q48H #3 tab 02/14/21 [Rx] Patient Handouts: How to Protect Yourself and Others - [facility] (10/19/2020), Diabetic Ketoacidosis, Pulmonary Embolism, Frequently Asked Questions About COVID-19 Vaccination - [facility] (11/09/2020), Infection Prevention in the Home, COVID-19: Quarantine vs. Isolation - [facility] (02/23/2020), Preventing Diabetic Ketoacidosis - Discharge Summary/Plan Comment DC Time >30 min.: No Total # of Minutes for Discharge Time: 20 - Patient Data Vitals - Most Recent: Last Vital Signs Temp 36.6 C 02/14/21 12:00 Pulse 85 02/14/21 12:00 Resp 20 02/14/21 12:00 BP 141/73 H 02/14/21 12:00 Pulse Ox 91 L 02/14/21 12:00 Weight - Most Recent: 77.02 kg I&O - Last 24 hours: Intake & Output 02/13/21 02/14/21 02/14/21 22:59 06:59 14:59 Intake Total 1040 800 Output Total 900 850 Balance 140 -50 Lab Results - Last 24 hrs: Laboratory Results - last 24 hr 02/13/21 02/14/21 02/14/21 Range/Units 17:09 06:00 06:00 WBC 11.63 H (4.0-11.0) K/uL RBC 2.80 L (4.30-5.90) M/uL Hgb 8.7 L (12.0-16.0) g/dL Hct 25.5 L (36.0-46.0) % MCV 91.1 (80.0-98.0) fL MCH 31.1 (27.0-32.0) pg MCHC 34.1 (31.0-37.0) g/dL RDW Std Deviation 44.0 (28.0-62.0) fl RDW Coeff of Lv 14 (11.0-15.0) % Plt Count 338 (150-400) K/uL MPV 9.50 (7.40-12.00) fL Add Manual Diff YES Neutrophils % (Manual) 69 (48.0-80.0) % Lymphocytes % (Manual) 19 (16.0-40.0) % Monocytes % (Manual) 11 (0.0-15.0) % Eosinophils % (Manual) 1 (0.0-7.0) % Nucleated RBC % 0.0 /100WBC Absolute Seg Neuts 8.0 H (1.4-5.7) Lymphocytes # (Manual) 2.2 (0.6-2.4) Monocytes # (Manual) 1.3 H (0.0-0.8) Eosinophils # (Manual) 0.1 (0.0-0.7) Nucleated RBCs # 0 K/uL Sodium 139 (136-145) mmol/L Potassium 4.1 (3.5-5.1) mmol/L Chloride 106 (98-107) mmol/L Carbon Dioxide 26.5 (21.0-32.0) mmol/L BUN 44 H (7.0-18.0) mg/dL Creatinine 2.0 H (0.6-1.0) mg/dL Est Cr Clr Drug Dosing 27.63 mL/min Estimated GFR (MDRD) 25.1 ml/min Glucose 120 H (74-106) mg/dL POC Glucose 174 H (70-99) mg/dL Calcium 7.9 L (8.5-10.1) mg/dL Total Bilirubin 0.2 (0.2-1.0) mg/dL AST 14 L (15-37) IU/L ALT 15 (14-63) IU/L Alkaline Phosphatase 104 (46-116) U/L Total Protein 5.9 L (6.4-8.2) g/dL Albumin 1.2 L (3.4-5.0) g/dL Globulin 4.7 H (2.6-4.0) g/dL Albumin/Globulin Ratio 0.3 L (0.9-1.6) 02/14/21 02/14/21 Range/Units 06:21 12:15 WBC (4.0-11.0) K/uL RBC (4.30-5.90) M/uL Hgb (12.0-16.0) g/dL Hct (36.0-46.0) % MCV (80.0-98.0) fL MCH (27.0-32.0) pg MCHC (31.0-37.0) g/dL RDW Std Deviation (28.0-62.0) fl RDW Coeff of Lv (11.0-15.0) % Plt Count (150-400) K/uL MPV (7.40-12.00) fL Add Manual Diff Neutrophils % (Manual) (48.0-80.0) % Lymphocytes % (Manual) (16.0-40.0) % Monocytes % (Manual) (0.0-15.0) % Eosinophils % (Manual) (0.0-7.0) % Nucleated RBC % /100WBC Absolute Seg Neuts (1.4-5.7) Lymphocytes # (Manual) (0.6-2.4) Monocytes # (Manual) (0.0-0.8) Eosinophils # (Manual) (0.0-0.7) Nucleated RBCs # K/uL Sodium (136-145) mmol/L Potassium (3.5-5.1) mmol/L Chloride (98-107) mmol/L Carbon Dioxide (21.0-32.0) mmol/L BUN (7.0-18.0) mg/dL Creatinine (0.6-1.0) mg/dL Est Cr Clr Drug Dosing mL/min Estimated GFR (MDRD) ml/min Glucose (74-106) mg/dL POC Glucose 102 H 144 H (70-99) mg/dL Calcium (8.5-10.1) mg/dL Total Bilirubin (0.2-1.0) mg/dL AST (15-37) IU/L ALT (14-63) IU/L Alkaline Phosphatase (46-116) U/L Total Protein (6.4-8.2) g/dL Albumin (3.4-5.0) g/dL Globulin (2.6-4.0) g/dL Albumin/Globulin Ratio (0.9-1.6) Med Orders - Current: Current Medications Acetaminophen (Acetaminophen 325 Mg Tab) 650 mg PO Q4H PRN PRN Reason: Pain (Mild 1-3)/fever Last Admin: 02/10/21 01:26 Dose: 650 mg Documented by: Albuterol/Ipratropium (Albuterol/Ipratropium 3.0-0.5 Mg/3 Ml Neb Soln) 3 ml NEB Q6HRRT [facility] Last Admin: 02/14/21 12:23 Dose: 3 ml Documented by: Apixaban (Apixaban 5 Mg Tab) 5 mg PO Q12HR [facility] Last Admin: 02/14/21 08:01 Dose: 5 mg Documented by: Aspirin (Aspirin 81 Mg Tab.Ec) 81 mg PO DAILY [facility] Last Admin: 02/14/21 08:02 Dose: 81 mg Documented by: Benzonatate (Benzonatate 100 Mg Cap) 100 mg PO Q8H PRN PRN Reason: Cough Dexamethasone (Dexamethasone 4 Mg Tab) 6 mg PO DAILY [facility] Stop: 02/20/21 11:31 Last Admin: 02/14/21 08:01 Dose: 6 mg Documented by: Dextrose/Water (50% Dextrose In Water 50 Ml Syringe) 50 ml IVPUSH ASDIRECTED PRN PRN Reason: Hypoglycemia Dextrose/Water (50% Dextrose In Water 50 Ml Syringe) 50 ml IVPUSH ASDIRECTED PRN PRN Reason: Hypoglycemia Gabapentin (Gabapentin 300 Mg Cap) 300 mg PO DAILY [facility] Last Admin: 02/14/21 08:01 Dose: 300 mg Documented by: Gabapentin (Gabapentin 300 Mg Cap) 600 mg PO BEDTIME [facility] Last Admin: 02/13/21 21:12 Dose: 600 mg Documented by: Glucagon (Glucagon,Human Recombinant 1 Mg Vial) 1 mg IM ASDIRECTED PRN PRN Reason: Hypoglycemia Glucagon (Glucagon,Human Recombinant 1 Mg Vial) 1 mg IM ASDIRECTED PRN PRN Reason: Hypoglycemia Sodium Chloride (Normal Saline) 500 mls @ 75 mls/hr IV ASDIRECTED [facility] Last Admin: 02/10/21 04:50 Dose: 75 mls/hr Documented by: Sodium Chloride (Normal Saline) 500 mls @ 50 mls/hr IV ASDIRECTED [facility] Last Admin: 02/10/21 16:24 Dose: 50 mls/hr Documented by: Levofloxacin/Dextrose 750 mg/ (Premix) 150 mls @ 100 mls/hr IV Q48H [facility] Last Admin: 02/12/21 17:58 Dose: 100 mls/hr Documented by: Insulin Aspart (Insulin Aspart 100 Units/Ml 3 Ml Pen) 10 unit SUBCUT TIDAC [facility] Last Admin: 02/14/21 12:18 Dose: 10 units Documented by: Insulin Aspart (Insulin Aspart 100 Units/Ml 3 Ml Pen) 0 unit SUBCUT TIDAC [facility]; Protocol Last Admin: 02/14/21 12:17 Dose: Not Given Documented by: Insulin Glargine (Insulin Glargine,Human Rec. Analog 100 Units/Ml 3 Ml Pen) 48 units SUBCUT DAILY [facility] Last Admin: 02/14/21 08:00 Dose: 48 units Documented by: Losartan Potassium (Losartan 50 Mg Tab) 50 mg PO BEDTIME [facility] Last Admin: 02/13/21 21:12 Dose: 50 mg Documented by: Pantoprazole Sodium (Pantoprazole 40 Mg Tab.Cr) 40 mg PO DAILY [facility] Last Admin: 02/14/21 08:01 Dose: 40 mg Documented by: Senna/Docusate Sodium (Docusate Sodium/Sennosides Tab) 1 each PO BID PRN PRN Reason: Constipation Discontinued Medications Dextrose/Water (50% Dextrose In Water 50 Ml Syringe) 50 ml IVPUSH ASDIRECTED PRN PRN Reason: Hypoglycemia Dextrose/Water (50% Dextrose In Water 50 Ml Syringe) 50 ml IVPUSH ASDIRECTED PRN PRN Reason: Hypoglycemia Enoxaparin Sodium (Enoxaparin 40 Mg/0.4 Ml Syringe) 40 mg SUBCUT DAILY [facility] Last Admin: 02/10/21 01:46 Dose: Not Given Documented by: Glucagon (Glucagon,Human Recombinant 1 Mg Vial) 1 mg IM ASDIRECTED PRN PRN Reason: Hypoglycemia Glucagon (Glucagon,Human Recombinant 1 Mg Vial) 1 mg IM ASDIRECTED PRN PRN Reason: Hypoglycemia Heparin Sodium (Porcine) (Heparin Sodium 5,000 Units/Ml Vial) 5,000 units SUBCUT Q12H [facility] Last Admin: 02/10/21 00:03 Dose: 5,000 units Documented by: Sodium Chloride (Normal Saline) 500 mls @ 999 mls/hr IV .BOLUS [facility] Last Admin: 02/09/21 20:32 Dose: 999 mls/hr Documented by: Insulin Regular in 0.9 % NACL (Myxredlin In Ns 100 Unit/100 Ml) 100 mls @ 7.702 mls/hr IV TITRATE [facility]; Protocol Insulin Regular in 0.9 % NACL (Myxredlin In Ns 100 Unit/100 Ml) 100 mls @ 1 mls/hr IV TITRATE [facility]; Protocol Last Titration: 02/11/21 06:24 Dose: 1.5 mls/hr, 1.5 mls/hr Documented by: Sodium Chloride (Normal Saline) 1,000 mls @ 50 mls/hr IV ASDIRECTED [facility] Insulin Regular in 0.9 % NACL (Myxredlin In Ns 100 Unit/100 Ml) 100 mls @ 1 mls/hr IV TITRATE [facility]; Protocol Last Titration: 02/12/21 05:52 Dose: 1 mls/hr, 1 mls/hr Documented by: Insulin Aspart (Insulin Aspart 100 Units/Ml 3 Ml Pen) 0 unit SUBCUT TIDAC [facility]; Protocol Last Admin: 02/10/21 12:25 Dose: 20 unit Documented by: Insulin Aspart (Insulin Aspart 100 Units/Ml 3 Ml Pen) 15 unit SUBCUT TIDAC [facility] Insulin Glargine (Insulin Glargine,Human Rec. Analog 100 Units/Ml 3 Ml Pen) 48 units SUBCUT BEDTIME [facility] Last Admin: 02/10/21 00:03 Dose: 48 units Documented by: Insulin Glargine (Insulin Glargine,Human Rec. Analog 100 Units/Ml 3 Ml Pen) 48 units SUBCUT BEDTIME [facility] Oxycodone HCl (Oxycodone 5 Mg Tab) 5 mg PO Q4H PRN PRN Reason: Pain (moderate 4-6)
== END 2021-02-14 15:20 | disposition home or self-care (01) | DRG 177 ==
LOC: MW.MS 18:44
PROVIDERS: ADMIT Hospitalist; ATTEND Hospitalist
PROC: 3E0DX3Z Introduction of Anti-inflammatory into Mouth and Pharynx, External Approach (ICD-10-PCS; principal; 2021-02-10)
DX: U07.1 COVID-19 (principal); I26.94 Multiple subsegmental thrombotic pulmonary emboli without acute cor pulmonale; J15.9 Unspecified bacterial pneumonia; J96.01 Acute respiratory failure with hypoxia; E87.2 Acidosis; N17.9 Acute kidney failure, unspecified; I25.10 Atherosclerotic heart disease of native coronary artery without angina pectoris; N18.30 Chronic kidney disease, stage 3 unspecified; E11.22 Type 2 diabetes mellitus with diabetic chronic kidney disease; Z88.5 Allergy status to narcotic agent; Z79.4 Long term (current) use of insulin; Z79.82 Long term (current) use of aspirin
CPT/HCPCS: 0240U; 36415; 71275; 71275-26; 80048; 80053; 82947; 84132; 85025; 94640; A9270-GY; J1644; J1815; J1815-GY; J1956; J7030; J7040; J7620-GY; J8540